=== PATIENT | male | born 1945 | race Caucasian/White ===

== ENCOUNTER 2017-11-11 03:36 | Inpatient (IN) | payer MEDICARE, MEDICAID ==
[2017-11-11] VITALS (11 sets, daily range): BP systolic 128–212; BP diastolic 59–101; PULSE 86–99; RESP 18–26; TEMP 97.6–98.6; O2SAT 96–100
[~2017-11-11] VITALS: Ht 170.2 cm; Wt 65.0 kg
--- NOTE | 2017-11-11 04:02 | PD ---
HPI Chief Complaint: Psychiatric Symptoms Time Seen by Provider: 03:51 Travel History International Travel<30 days: No Contact w/Intl Traveler<30days: No Traveled to known affect area: No History of Present Illness HPI 72-year-old male brought to emergency department under Haro act for psychiatric evaluation. Patient tells me that there were people at his door. He did not recognize them. He tells me that he lives far out in the [facility] so he contacted police. Police came and found him sitting in feces and urine with little food in the house. They felt the patient was hallucinating. They brought him in under Haro act. Patient states that he was doing well and denies any significant medical history except for polio as a child. 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 He denies any recent illnesses, fever, or chills. Reports that he has had difficulty with his bowels and bladder. Denies any abdominal pain. Denies any other symptoms at this time. [facility] Past Medical History Medical History: Denies Significant Hx Social History Alcohol Use: No Tobacco Use: No Substance Use: No Allergies-Medications (Allergen,Severity, Reaction): Coded Allergies: No Known Allergies (Unverified , 11/11/17) Review of Systems Except as stated in HPI: all other systems reviewed are Neg Physical Exam Narrative GENERAL: Unkempt male patient, sitting up in bed, in no acute distress. SKIN: Focused skin assessment warm/dry. Buttocks are excoriated after dried stool is removed. HEAD: Atraumatic. Normocephalic. EYES: Pupils equal and round. No scleral icterus. No injection or drainage. ENT: No nasal bleeding or discharge. Mucous membranes pink and moist. NECK: Trachea midline. No JVD. CARDIOVASCULAR: Regular rate and rhythm. No murmur appreciated. RESPIRATORY: No accessory muscle use. Diminished, coarse to auscultation. Breath sounds equal bilaterally. GASTROINTESTINAL: Abdomen soft, non-tender, nondistended. Hepatic and splenic margins not palpable. MUSCULOSKELETAL: No obvious deformities. No clubbing. No cyanosis. Trace distal lower extremity edema.. Patient is unable to move the extremities NEUROLOGICAL: Awake and alert. No obvious cranial nerve deficits. Motor grossly within normal limits. Normal speech. Data Data Last Documented VS Vital Signs Date Time Temp Pulse Resp B/P (MAP) Pulse Ox O2 Delivery O2 Flow Rate FiO2 11/11/17 03:54 98.6 88 20 189/86 (120) 100 Orders Orders Complete Blood Count With Diff (11/11/17 03:56) Basic Metabolic Panel (Bmp) (11/11/17 03:56) Urinalysis - C+S If Indicated (11/11/17 03:56) Drug Screen, Random Urine (11/11/17 03:56) Alcohol (Ethanol) (11/11/17 03:56) Chest, Single Ap (11/11/17 ) Ct Brain W/O Iv Contrast(Rout) (11/11/17 ) Electrocardiogram (11/11/17 ) Ns (Bolus) Inj (11/11/17 05:15) Labs Laboratory Tests Test 11/11/17 04:15 White Blood Count 8.8 TH/MM3 Red Blood Count 3.88 MIL/MM3 Hemoglobin 13.2 GM/DL Hematocrit 36.6 % Mean Corpuscular Volume 94.3 FL Mean Corpuscular Hemoglobin 33.9 PG Mean Corpuscular Hemoglobin Concent 35.9 % Red Cell Distribution Width 13.3 % Platelet Count 319 TH/MM3 Mean Platelet Volume 6.8 FL Neutrophils (%) (Auto) 79.2 % Lymphocytes (%) (Auto) 9.8 % Monocytes (%) (Auto) 9.9 % Eosinophils (%) (Auto) 0.5 % Basophils (%) (Auto) 0.6 % Neutrophils # (Auto) 7.0 TH/MM3 Lymphocytes # (Auto) 0.9 TH/MM3 Monocytes # (Auto) 0.9 TH/MM3 Eosinophils # (Auto) 0.0 TH/MM3 Basophils # (Auto) 0.1 TH/MM3 CBC Comment AUTO DIFF Urine Color LIGHT-YELLOW Urine Turbidity CLEAR Urine pH 6.5 Urine Specific [place] 1.006 Urine Protein NEG mg/dL Urine Glucose (UA) NEG mg/dL Urine Ketones 10 mg/dL Urine Occult Blood NEG Urine Nitrite NEG Urine Bilirubin NEG Urine Urobilinogen LESS THAN 2.0 MG/DL Urine Leukocyte Esterase NEG Urine RBC 1 /hpf Urine WBC 1 /hpf Urine Mucus FEW /lpf Microscopic Urinalysis Comment CULT NOT INDICATED Blood Urea Nitrogen 5 MG/DL Creatinine 0.59 MG/DL Random Glucose 113 MG/DL Calcium Level 8.2 MG/DL Sodium Level 119 MEQ/L Potassium Level 3.2 MEQ/L Chloride Level 84 MEQ/L Carbon Dioxide Level 25.7 MEQ/L Anion Gap 9 MEQ/L Estimat Glomerular Filtration Rate 134 ML/MIN Urine Opiates Screen NEG Urine Barbiturates Screen NEG Urine Amphetamines Screen NEG Urine Benzodiazepines Screen NEG Urine Cocaine Screen NEG Urine Cannabinoids Screen NEG Ethyl Alcohol Level LESS THAN 3 MG/DL MDM Medical Decision Making Medical Screen Exam Complete: Yes Emergency Medical Condition: Yes Medical Record Reviewed: Yes Differential Diagnosis Electrolytic abnormality versus sepsis versus gastroenteritis versus failure to thrive versus UTI Narrative Course 72-year-old male presents emergency department for evaluation. Patient appears without distress. He speaks clearly and seems to have fairly good recollection of events and what is going on. He does live alone however. Patient has no documented psychiatric history here. Patient did have dried feces on his buttocks and had voided on his pain is. Medical workup is initiated to evaluated. Laboratory Tests Test 11/11/17 04:15 White Blood Count 8.8 TH/MM3 Red Blood Count 3.88 MIL/MM3 Hemoglobin 13.2 GM/DL Hematocrit 36.6 % Mean Corpuscular Volume 94.3 FL Mean Corpuscular Hemoglobin 33.9 PG Mean Corpuscular Hemoglobin Concent 35.9 % Red Cell Distribution Width 13.3 % Platelet Count 319 TH/MM3 Mean Platelet Volume 6.8 FL Neutrophils (%) (Auto) 79.2 % Lymphocytes (%) (Auto) 9.8 % Monocytes (%) (Auto) 9.9 % Eosinophils (%) (Auto) 0.5 % Basophils (%) (Auto) 0.6 % Neutrophils # (Auto) 7.0 TH/MM3 Lymphocytes # (Auto) 0.9 TH/MM3 Monocytes # (Auto) 0.9 TH/MM3 Eosinophils # (Auto) 0.0 TH/MM3 Basophils # (Auto) 0.1 TH/MM3 CBC Comment AUTO DIFF Urine Color LIGHT-YELLOW Urine Turbidity CLEAR Urine pH 6.5 Urine Specific [place] 1.006 Urine Protein NEG mg/dL Urine Glucose (UA) NEG mg/dL Urine Ketones 10 mg/dL Urine Occult Blood NEG Urine Nitrite NEG Urine Bilirubin NEG Urine Urobilinogen LESS THAN 2.0 MG/DL Urine Leukocyte Esterase NEG Urine RBC 1 /hpf Urine WBC 1 /hpf Urine Mucus FEW /lpf Microscopic Urinalysis Comment CULT NOT INDICATED Blood Urea Nitrogen 5 MG/DL Creatinine 0.59 MG/DL Random Glucose 113 MG/DL Calcium Level 8.2 MG/DL Sodium Level 119 MEQ/L Potassium Level 3.2 MEQ/L Chloride Level 84 MEQ/L Carbon Dioxide Level 25.7 MEQ/L Anion Gap 9 MEQ/L Estimat Glomerular Filtration Rate 134 ML/MIN Urine Opiates Screen NEG Urine Barbiturates Screen NEG Urine Amphetamines Screen NEG Urine Benzodiazepines Screen NEG Urine Cocaine Screen NEG Urine Cannabinoids Screen NEG Ethyl Alcohol Level LESS THAN 3 MG/DL CBC is without acute concern. BMP is with hyponatremia 119. Mild hypokalemia 3.2. PLACE a [facility] for admission. Diagnosis Primary Impression: Altered mental status, unspecified Qualified Codes: R41.82 - Altered mental status, unspecified Additional Impressions: Hyponatremia Hypokalemia Admitting Information Admitting Physician Requests: Admit Condition: Stable ReyesLissett buclkey MISAEL Nov 11, 2017 04:02
[2017-11-11 04:36] LABS: BILIRUBIN, URINE NEG (NEG); BLOOD, URINE NEG (NEG); GLUCOSE,URINE NEG (NEG); KETONE, URINE 10 mg/dL (NEG); MUCUS URINE FEW /lpf (OCC); NITRITE,URINE NEG (NEG); PH, URINE 6.5 (5.0-8.5); URINE COLOR LIGHT-YELLOW (YELLW/STRAW); URINE LEUKOCYTE ESTERASE NEG (NEG)
[2017-11-11 04:38] LABS: BASOPHIL # 0.1 TH/MM3 (0-0.2); BASOPHIL % 0.6 % (0.0-2.0); EOSINOPHIL % 0.5 % (0.0-4.0); HEMATOCRIT 36.6 % (39.0-51.0); HEMOGLOBIN 13.2 GM/DL (13.0-17.0); LYMPH % 9.8 % (9.0-44.0); LYMPHOCYTE # 0.9 TH/MM3 (1.0-4.8); MEAN CELL VOLUME 94.3 FL (80.0-100.0); MEAN CORPUSCULAR HEMOGLOBIN 33.9 PG (27.0-34.0); MEAN CORPUSCULAR HGB CONC 35.9 % (32.0-36.0); MEAN PLATELET VOLUME 6.8 FL (7.0-11.0); MONO % 9.9 % (0.0-8.0); MONOCYTE # 0.9 TH/MM3 (0-0.9); NEUT % 79.2 % (16.0-70.0); PLATELET COUNT 319 TH/MM3 (150-450); RED BLOOD COUNT 3.88 MIL/MM3 (4.50-5.90); RED CELL DISTRIBUTION WIDTH 13.3 % (11.6-17.2); WHITE BLOOD COUNT 8.8 TH/MM3 (4.0-11.0)
--- NOTE | 2017-11-11 04:53 | RADRPT ---
EXAM DATE/TIME: 11/11/2017 04:27 [facility] COMPARISON: No previous studies available for comparison. INDICATIONS : Productive Cough x 1 month MEDICAL HISTORY : None. SURGICAL HISTORY : None. ENCOUNTER: Initial ACUITY: 1 month PAIN SCORE: 7/10 LOCATION: Bilateral chest FINDINGS: A single view of the chest demonstrates the lungs to be symmetrically aerated without evidence of mas s, infiltrate or effusion. There is hyperaeration of the lung garcia. The cardiomediastinal contours are unremarkable. Osseous structures are intact. CONCLUSION: No acute disease. Rafael Steel MD on November 11, 2017 at 4:50 Board Certified Radiologist. This report was verified electronically.
--- NOTE | 2017-11-11 04:55 | RADRPT ---
EXAM DATE/TIME: 11/11/2017 04:42 [facility] COMPARISON: No previous studies available for comparison. INDICATIONS : Altered mental status. RADIATION DOSE: 38.74 CTDIvol (mGy) MEDICAL HISTORY : None SURGICAL HISTORY : None. ENCOUNTER: Initial ACUITY: 1 day PAIN SCALE: Non-responsive LOCATION: cranial TECHNIQUE: Multiple contiguous axial images were obtained of the head. Using automated exposure control and adj ustment of the mA and/or kV according to patient size, radiation dose was kept as low as reasonably a chievable to obtain optimal diagnostic quality images. DICOM format image data is available electro nically for review and comparison. FINDINGS: CEREBRUM: The ventricles are normal for age. No evidence of midline shift, mass lesion, hemorrhage or acute in farction. No extra-axial fluid collections are seen. POSTERIOR FOSSA: The cerebellum and brainstem are intact. The 4th ventricle is midline. The cerebellopontine angle i s unremarkable. EXTRACRANIAL: The visualized portion of the orbits is intact. SKULL: The calvaria is intact. No evidence of skull fracture. CONCLUSION: Normal examination for a patient of this age. Rafael Steel MD on November 11, 2017 at 4:52 Board Certified Radiologist. This report was verified electronically.
[2017-11-11 05:00] LABS: BICARBONATE 25.7 MEQ/L (21.0-32.0); BLOOD UREA NITROGEN 5 MG/DL (7-18); CALCIUM 8.2 MG/DL (8.5-10.1); CHLORIDE 84 MEQ/L (98-107); CREATININE 0.59 MG/DL (0.60-1.30); GLOMERULAR FILTRATION RATE 134 ML/MIN (>89); GLUCOSE,RANDOM 113 MG/DL (74-106)
[2017-11-11 05:02] LABS: SODIUM (NA) 119 MEQ/L (136-145)
[2017-11-11] MEDS ORDERED: SODIUM CHLOR 0.9% 1000 ML INJ 1,000 ML IV ONE (05:15)
[2017-11-11 05:55] LABS: ACANTHOCYTES OCC (NORMAL)
--- NOTE | 2017-11-11 08:28 | HHI.HP ---
[facility] Service Critical Care Medicine Primary Care Physician No Primary Care Physician Admission Diagnosis hyponatremia Diagnosis: (1) Alcohol consumption of one to four drinks per day Diagnosis: Principal (2) Tobacco abuse Diagnosis: Principal (3) History of poliomyelitis Diagnosis: Secondary (4) Hyperglycemia Diagnosis: Secondary (5) Low hematocrit Diagnosis: Secondary (6) Hypokalemia Diagnosis: Principal (7) Hyponatremia Diagnosis: Principal (8) Altered mental status, unspecified Diagnosis: Secondary Chief Complaint: Haro act. Confused found covered in feces hallucinating. Lives in the [facility] Travel History International Travel<30 Days: No Contact w/Intl Traveler <30 Da: No Traveled to Known Affected Are: No History of Present Illness This is a 72-year-old male. Date of admission 11/11/2007. Past medical history includes postpolio syndrome. Patient extubated is doing soaks requires pack per day tobacco. Patient presents to [facility] ED as a Haro act. This patient stated to me that he saw " people" and contacted police. Police came and found him sitting in feces and urine with little food in the house. They felt the patient was hallucinating. They brought him in under Haro act. Patient states that he was doing well and denies any significant medical history except for polio as a child. 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 He denies any recent illnesses, fever, or chills. Reports that he has had difficulty with his bowels and bladder. Specifically complaining of suprapubic distention. Denies any abdominal pain. Denies any other symptoms at this time. CT brain revealed no acute intracranial findings. Sodium 119 potassium 3.2. Glucose slightly elevated. We are asked to admit the patient because the contacted hospitalist did not feel comfortable admitting a stable patient with a sodium of 119. Review of Systems Constitutional: COMPLAINS OF: Weight loss, DENIES: Fatigue, Fever, Weight gain Endocrine: DENIES: Polydipsia, Polyuria Eyes: DENIES: Blurred vision, Diplopia Ears, nose, mouth, throat: COMPLAINS OF: Hearing loss, DENIES: Toothache Respiratory: DENIES: Apneas, Shortness of breath Cardiovascular: DENIES: Chest pain, Lower Extremity Edema Gastrointestinal: DENIES: Diarrhea, Nausea, Vomiting Genitourinary: COMPLAINS OF: Urgency, DENIES: Hematuria, Dysuria Musculoskeletal: DENIES: Joint pain, Muscle aches, Joint Swelling Integumentary: DENIES: Abnormal pigmentation, Rash Hematologic/lymphatic: DENIES: Bruising Immunologic/allergic: DENIES: Eczema Neurologic: COMPLAINS OF: Abnormal gait, Localized weakness, DENIES: Paresthesias, Seizures, Speech Problems Psychiatric: COMPLAINS OF: Anxiety, Confusion, Depression, Hallucinations, Agitation Past Family Social History Allergies: Coded Allergies: No Known Allergies (Unverified , 11/11/17) Past Medical History Postpolio syndrome Hard of hearing Past Surgical History Dental/all upper teeth removed, partial lowers. Vocal cord polyp removal Reported Medications None Active Ordered Medications Reviewed in EMR Family History Mother from cancer. Father from self-inflicted gunshot wound Social History 2 beers daily. Three quarters pack per day tobacco 50 years. Denies illicit drug use. Physical Exam Vital Signs Vital Signs Date Time Temp Pulse Resp B/P (MAP) Pulse Ox O2 Delivery O2 Flow Rate FiO2 11/11/17 05:29 87 20 212/101 (138) 96 Room Air 11/11/17 05:23 91 20 11/11/17 03:54 98.6 88 20 189/86 (120) 100 Physical Exam GENERAL: 72-year-old male resting in bed in no acute distress SKIN: Warm and dry. HEAD: Atraumatic. Normocephalic. EYES: Pupils equal and round. No scleral icterus. No injection or drainage. ENT: No nasal bleeding or discharge. Mucous membranes pink and moist. NECK: Trachea midline. No JVD. CARDIOVASCULAR: Regular rate and rhythm. S1, S2. No S4. Without murmur RESPIRATORY: No accessory muscle use. Clear to auscultation. Breath sounds equal bilaterally. GASTROINTESTINAL: Abdomen soft, non-tender, slightly distended suprapubically. No pain elicited on examination. Hepatic and splenic margins not palpable. MUSCULOSKELETAL: Extremities without significant peripheral edema. No obvious deformities. NEUROLOGICAL: Awake and alert. No obvious cranial nerve deficits. Motor grossly within normal limits. Five out of 5 muscle strength in the arms and legs. Normal speech. Laboratory Laboratory Tests Test 11/11/17 04:15 White Blood Count 8.8 Red Blood Count 3.88 Hemoglobin 13.2 Hematocrit 36.6 Mean Corpuscular Volume 94.3 Mean Corpuscular Hemoglobin 33.9 Mean Corpuscular Hemoglobin Concent 35.9 Red Cell Distribution Width 13.3 Platelet Count 319 Mean Platelet Volume 6.8 Neutrophils (%) (Auto) 79.2 Lymphocytes (%) (Auto) 9.8 Monocytes (%) (Auto) 9.9 Eosinophils (%) (Auto) 0.5 Basophils (%) (Auto) 0.6 Neutrophils # (Auto) 7.0 Lymphocytes # (Auto) 0.9 Monocytes # (Auto) 0.9 Eosinophils # (Auto) 0.0 Basophils # (Auto) 0.1 CBC Comment AUTO DIFF Differential Comment AUTO DIFF CONFIRMED Platelet Estimate NORMAL Platelet Morphology Comment NORMAL Acanthocytes OCC Urine Color LIGHT-YELLOW Urine Turbidity CLEAR Urine pH 6.5 Urine Specific [place] 1.006 Urine Protein NEG Urine Glucose (UA) NEG Urine Ketones 10 Urine Occult Blood NEG Urine Nitrite NEG Urine Bilirubin NEG Urine Urobilinogen LESS THAN 2.0 Urine Leukocyte Esterase NEG Urine RBC 1 Urine WBC 1 Urine Mucus FEW Microscopic Urinalysis Comment CULT NOT INDICATED Blood Urea Nitrogen 5 Creatinine 0.59 Random Glucose 113 Calcium Level 8.2 Sodium Level 119 Potassium Level 3.2 Chloride Level 84 Carbon Dioxide Level 25.7 Anion Gap 9 Estimat Glomerular Filtration Rate 134 Urine Opiates Screen NEG Urine Barbiturates Screen NEG Urine Amphetamines Screen NEG Urine Benzodiazepines Screen NEG Urine Cocaine Screen NEG Urine Cannabinoids Screen NEG Ethyl Alcohol Level LESS THAN 3 Result Diagram: 11/11/17 0415 11/11/17 0415 Imaging Last Impressions Head CT 11/11/17 0000 Signed Impressions: Service Date/Time: Saturday, November 11, 2017 04:42 - CONCLUSION: Normal examination for a patient of this age. Rafael Steel MD Chest X-Ray 11/11/17 0000 Signed Impressions: Service Date/Time: Saturday, November 11, 2017 04:27 - CONCLUSION: No acute disease. Rafael Steel MD Septic Shock Reassessment Septic shock perfusion: reassessment completed Caprini VTE Risk Assessment Caprini VTE Risk Assessment: Mod/High Risk (score >= 2) Caprini Risk Assessment Model Point Value = 1 Point Value = 2 Point Value = 3 Point Value = 5 Age 41-60 Minor surgery BMI > 25 kg/m2 Swollen legs Varicose veins or History of unexplained or recurrent spontaneous Oral contraceptives or hormone replacement Sepsis (< 1 month) Serious lung disease, including pneumonia (< 1 month) Abnormal pulmonary function Acute myocardial infarction Congestive heart failure (< 1 month) History of inflammatory bowel disease Medical patient at bed rest Age 61-74 Arthroscopic surgery Major open surgery (> 45 min) Laparoscopic surgery (> 45 min) Malignancy Confined to bed (> 72 hours) Immobilizing plaster cast Central venous access Age >= 75 History of VTE Family history of VTE Factor V Leiden Prothrombin [id number] Lupus anticoagulant Anticardiolipin antibodies Elevated serum homocysteine Heparin-induced thrombocytopenia Other congenital or acquired thrombophilia Stroke (< 1 month) Elective arthroplasty Hip, pelvis, or leg fracture Acute spinal cord injury (< 1 month) Prophylaxis Regimen Total Risk Factor Score Risk Level Prophylaxis Regimen 0-1 Low Early ambulation 2 Moderate Order ONE of the following: *Sequential Compression Device (SCD) *Heparin 5000 units SQ BID 3-4 Higher Order ONE of the following medications: *Heparin 5000 units SQ TID *Enoxaparin/Lovenox 40 mg SQ daily (WT < 150 kg, CrCl > 30 mL/min) *Enoxaparin/Lovenox 30 mg SQ daily (WT < 150 kg, CrCl > 10-29 mL/min) *Enoxaparin/Lovenox 30 mg SQ BID (WT < 150 kg, CrCl > 30 mL/min) AND/OR *Sequential Compression Device (SCD) 5 or more Highest Order ONE of the following medications: *Heparin 5000 units SQ TID (Preferred with Epidurals) *Enoxaparin/Lovenox 40 mg SQ daily (WT < 150 kg, CrCl > 30 mL/min) *Enoxaparin/Lovenox 30 mg SQ daily (WT < 150 kg, CrCl > 10-29 mL/min) *Enoxaparin/Lovenox 30 mg SQ BID (WT < 150 kg, CrCl > 30 mL/min) AND *Sequential Compression Device (SCD) Assessment and Plan Assessment and Plan Neuro/Psych: Visual hallucinations Metabolic encephalopathy CT brain 11/11 revealed no acute intracranial findings Check EEG Likely will be resolved with slow correction sodium. Patient is under a Haro act. Consult psychiatry when able to participate in discussion UDS (-) Check EtOH level Acetaminophen 650 mg every 6 hours. Fever Hydrocodone/acetaminophen 1 tablet every 4 hours when necessary pain 1-5. Morphine sulfate 2 mg IV every 2 hours when necessary pain 6 out of 10 CV: Currently normal saline at 40 cc an hour Currently not requiring vasopressors and/or antihypertensives Check EKG Resp: Tobaccoism Nasal cannula to maintain saturations greater than or equal to 92% Incentive spirometry while awake Tobacco sensation self education booklet will be provided. GI: Follow-up on liver function tests and ammonia level Regular diet Pantoprazole for GI prophylaxis Docusate sodium/senna 1 tablet twice a day for bowel regimen : No indication for Ramirez catheter Check renal/bladder ultrasound Endo: Hyperglycemia Sliding-scale insulin to maintain euglycemia Novulin R Accu-Cheks before meals at bedtime Check TSH Renal: Creatinine currently within normal limits Monitor urine output Accurate I's and O's Heme: Decreased hematocrit Follow CBC and coags as indicated. Monitor trends ID: Monitor for infection FEN: Hyponatremia Hypokalemia Ordered 90 mEq potassium chloride over the next 24 hours. Appears euvolemic. Check serum and urine osm, urine sodium, TSH, cortisol cardiac acid and lipid panel. Volume restrict 1800 cc Normal saline at 40 cc an hour. Goal sodium no more than 12 in the next 24 hours\\ MSK: History of postpolio syndrome PT evaluate and treat Access - Utilize peripheral IV. Central line if indicated Prophylaxis - GI - pantoprazole - DVT - SCD/heparin Level II admission. Patient is stable from a critical care medicine standpoint. We'll assign care to hospitalist in a.m. 11/12. Code Status Full code Discussed Condition With Patient. Care plan discussed and all questions answered. Problem Qualifiers (1) Altered mental status, unspecified: Qualified Codes: R41.82 - Altered mental status, unspecified Antoine Black MD Nov 11, 2017 08:28
[2017-11-11] MEDS ORDERED: ONDANSETRON HCL 4 MG/2 ML VIAL IV PUSH PRN (08:30)
[2017-11-11] MEDS ORDERED: SENNOSIDES 8.6 MG TAB PO PRN (08:30)
[2017-11-11] MEDS ORDERED: ACETAMINOPHEN/HYDROcodone 325 MG/5 MG TAB PO PRN (08:30)
[2017-11-11] MEDS ORDERED: MORPHINE SULFATE 2 MG/ML INJ IV PUSH PRN (08:30)
[2017-11-11] MEDS ORDERED: ACETAMINOPHEN 325 MG TAB PO PRN (08:30)
[2017-11-11] MEDS ORDERED: MAGNESIUM HYDROXIDE SUSP 30 ML CUP PO PRN (08:30)
[2017-11-11] MEDS ORDERED: BISACODYL 10 MG SUPP RECTAL PRN (08:30)
[2017-11-11] MEDS ORDERED: LACTULOSE SYRUP 20 GM/30 ML CUP PO PRN (08:30)
[2017-11-11] MEDS ORDERED: MISCELLANEOUS NURSING INFORMATION XX SCH (08:30)
[2017-11-11] MEDS ORDERED: RESP: ALBUTEROL 2.5 MG/3 ML NEB (PRN) INH (08:30)
[2017-11-11] MEDS ORDERED: SODIUM CHLORIDE 0.9% FLUSH 10 ML FLUSH IV FLUSH PRN (08:30)
[2017-11-11] MEDS ORDERED: CHLORHEXIDINE GLUCONATE 2 % 1 PACK (2 CLOTHS) TOP PRN (08:30)
[2017-11-11] MEDS ORDERED: DEXTROSE 50% IN WATER 50 ML VIAL(D50) IV PUSH PRN (08:45)
[2017-11-11] MEDS: RESP: ALBUTEROL 2.5 MG/IPRATROPIUM 0.5 MG NEB (SCH) INH ×3 (08:45→19:14)
[2017-11-11] MEDS ORDERED: GLUCAGON 1 MG/ML VIAL OTHER PRN (08:45)
[2017-11-11] MEDS ORDERED: SODIUM CHLOR 0.9% 1000 ML INJ 1,000 ML IV SCH (09:00)
[2017-11-11 09:47] LABS: SODIUM,RANDOM URINE 15 MEQ/L
[2017-11-11] MEDS: HEPARIN SODIUM - SQ 10,000 UNITS/ML VIAL SQ SCH (09:55)
[2017-11-11] MEDS: PANTOPRAZOLE SOD 40 MG DELAYED RELEASE TAB PO SCH (09:55)
[2017-11-11] MEDS: POTASSIUM CHLORIDE 10 MEQ CONTROLLED RELEASE TAB PO SCH ×2 (09:55→20:36)
[2017-11-11] MEDS: FOLIC ACID 1 MG TAB PO SCH (09:56)
[2017-11-11] MEDS: SODIUM CHLORIDE 0.9% FLUSH 10 ML FLUSH IV FLUSH SCH ×2 (09:56→20:24)
[2017-11-11] MEDS: MULTIVITAMIN TAB PO SCH (09:56)
[2017-11-11] MEDS: DOCUSATE SODIUM 50 MG/SENNA 8.6 MG TAB PO SCH ×2 (09:56→20:24)
[2017-11-11] MEDS: THIAMINE HCL 100 MG TAB PO SCH (09:58)
[2017-11-11 10:00] LABS: OSMOLALITY,URINE 193 MOSM/KG (300-1300)
[2017-11-11 10:45] LABS: PROTHROMBIN TIME - PATIENT 10.6 SEC (9.8-11.6)
[2017-11-11 10:46] LABS: AMYLASE 40 U/L (25-115); LIPASE 147 U/L (73-393)
--- NOTE | 2017-11-11 10:49 | RADRPT ---
EXAM DATE/TIME: 11/11/2017 10:13 [facility] COMPARISON: No previous studies available for comparison. INDICATIONS : Flank pain. MEDICAL HISTORY : Hearing loss. Eye problem. Confusion. Depression. Anxiety. SURGICAL HISTORY : Tonsillectomy. ENCOUNTER: Initial ACUITY: 1 day PAIN SCORE: 4/10 LOCATION: Bilateral flank MEASUREMENTS: RIGHT KIDNEY: 11.1 x 3.8 x 4.6 cm LEFT KIDNEY: 9.5 x 2.9 x 5.9 cm FINDINGS: RIGHT KIDNEY: Small amount of perinephric fluid. 1.1 cm simple peripelvic cyst. No evidence of hydronephrosis. LEFT KIDNEY: Grossly within normal limits. No evidence of hydronephrosis. BLADDER: Mildly trabeculated appearance the bladder. Mildly distended. CONCLUSION: Mildly distended urinary bladder with trabeculated wall. No evidence of hydronephrosis. Minh Zarate MD on November 11, 2017 at 10:45 Board Certified Radiologist. This report was verified electronically.
[2017-11-11 11:34] LABS: ALBUMIN 3.4 GM/DL (3.4-5.0); DIRECT BILIRUBIN ADULT 0.2 MG/DL (0.0-0.2); MAGNESIUM 1.9 MG/DL (1.5-2.5); PHOSPHORUS 3.2 MG/DL (2.5-4.9)
[2017-11-11 11:44] LABS: CHOLESTEROL/ HDL RATIO 2.07 RATIO; HDL CHOLESTEROL 84.5 MG/DL (40.0-60.0); INDIRECT BILIRUBIN 0.6 MG/DL (0.0-0.8); TOTAL BILIRUBIN ADULT 0.8 MG/DL (0.2-1.0); TOTAL PROTEIN 6.3 GM/DL (6.4-8.2)
[2017-11-11] MEDS: INSULIN NovoLIN REGULAR SUPPLEMENTAL SCALE SQ SCH ×3 (12:00→20:36)
[2017-11-11] MEDS ORDERED: hydrALAZINE HCL 20 MG/ML VIAL IV PUSH PRN (12:15)
[2017-11-11] MEDS ORDERED: hydrALAZINE HCL 20 MG/ML VIAL IV PUSH ONE (12:15)
[2017-11-11] MEDS ORDERED: NITROGLYCERIN 2% OINT 1 GM PACKET TOPICAL PRN (12:15)
[2017-11-11] MEDS ORDERED: LABETALOL HCL 100 MG/20 ML VIAL IV PUSH PRN (12:15)
[2017-11-11] MEDS: ARTIFICIAL TEARS OPTH SOLN 15 ML BTL EACH EYE SCH ×3 (13:00→18:25)
[2017-11-11] MEDS ORDERED: POTASSIUM CHLORIDE INJ 10 MEQ in SODIUM CHLOR 0.45% 1000 ML INJ 1,000 ML IV SCH (15:00)
--- NOTE | 2017-11-11 15:29 | EKG ---
Date Performed: 11/11/2017 Time Performed: 04:37:42 PTAGE: 72 years EKG: Sinus rhythm LOW QRS VOLTAGE IN EXTREMITY LEADS POSSIBLE RIGHT VENTRICULAR CONDUCTION DELAY INFERIOR MYOCARDIAL I NFARCTION ABNORMAL ECG NO PREVIOUS TRACING DOCTOR: Bethel Bolaños Interpretating Date/Time 11/11/2017 15:28:16
[2017-11-12] VITALS (13 sets, daily range): BP systolic 138–197; BP diastolic 68–97; PULSE 74–104; RESP 18–24; TEMP 97.9–98.7; O2SAT 92–98
[2017-11-12 01:04] LABS: AUTOMATED NEUTROPHIL # 8.6 TH/MM3 (1.8-7.7); BASOPHIL % 0.5 % (0.0-2.0); HEMATOCRIT 34.7 % (39.0-51.0); HEMOGLOBIN 12.3 GM/DL (13.0-17.0); LYMPH % 7.6 % (9.0-44.0); LYMPHOCYTE # 0.8 TH/MM3 (1.0-4.8); MEAN CELL VOLUME 95.2 FL (80.0-100.0); MEAN CORPUSCULAR HEMOGLOBIN 33.9 PG (27.0-34.0); MEAN CORPUSCULAR HGB CONC 35.6 % (32.0-36.0); MEAN PLATELET VOLUME 6.6 FL (7.0-11.0); MONO % 9.4 % (0.0-8.0); NEUT % 82.5 % (16.0-70.0); PLATELET COUNT 335 TH/MM3 (150-450); RED BLOOD COUNT 3.65 MIL/MM3 (4.50-5.90); RED CELL DISTRIBUTION WIDTH 13.4 % (11.6-17.2); WHITE BLOOD COUNT 10.4 TH/MM3 (4.0-11.0)
[2017-11-12 01:20] LABS: INTERNATIONAL NORMALIZED RATIO 1.1 RATIO; PROTHROMBIN TIME - PATIENT 10.7 SEC (9.8-11.6)
[2017-11-12 01:26] LABS: ALBUMIN 2.9 GM/DL (3.4-5.0); ALKALINE PHOSPHATASE 88 U/L (45-117); ALT (GPT) 40 U/L (12-78); AST (GOT) 23 U/L (15-37); BICARBONATE 26.7 MEQ/L (21.0-32.0); BLOOD UREA NITROGEN 7 MG/DL (7-18); CALCIUM 8.3 MG/DL (8.5-10.1); CHLORIDE 93 MEQ/L (98-107); CREATININE 0.65 MG/DL (0.60-1.30); GLOMERULAR FILTRATION RATE 120 ML/MIN (>89); GLUCOSE,RANDOM 115 MG/DL (74-106); MAGNESIUM 1.9 MG/DL (1.5-2.5); PHOSPHORUS 2.8 MG/DL (2.5-4.9); SODIUM (NA) 128 MEQ/L (136-145); TOTAL BILIRUBIN ADULT 0.8 MG/DL (0.2-1.0); TOTAL PROTEIN 5.9 GM/DL (6.4-8.2)
[2017-11-12] MEDS: CHLORHEXIDINE GLUCONATE 2 % 1 PACK (2 CLOTHS) TOP SCH (02:33)
[2017-11-12] MEDS: RESP: ALBUTEROL 2.5 MG/IPRATROPIUM 0.5 MG NEB (SCH) INH ×4 (03:18→20:14)
[2017-11-12] MEDS: INSULIN NovoLIN REGULAR SUPPLEMENTAL SCALE SQ SCH ×4 (08:00→21:00)
--- NOTE | 2017-11-12 08:15 | MG ---
cc: JOAQUIN MONDRAGON MD Lab No: Date: 11/11/2017 Age: Sex: M Race: DATE OF [address] Black MEDICAL HISTORY Hearing loss, confusion, weakness, depression, anxiety, weight loss, hallucination, alcohol and tobacco abuse. The patient is Haro Acted, found in feces and urine, hallucinating, difficulty walking for 2 months. MEDICATIONS 1. Heparin. 2. Protonix. 3. KCL. 4. Thiamine. 5. Folic acid. 6. Theragran. DESCRIPTION Background activity is 8-9 Hz alpha located posteriorly. There is excessive eye blink and muscle artifact during the recording. There is electrode artifact on the right hemisphere frontal and temporal area. Hyperventilation was omitted. Photic stimulation did not elicit driving response. The patient transitioned to sleep during the recording. There were no electrographic seizures or epileptiform discharges noted during the recording. INTERPRETATION This is normal awake, drowsy and asleep EEG. There was excessive eye blink and movement artifact as well as electrode artifact. There were no electrographic seizures or epileptiform discharges noted during the recording. Clinical correlation is recommended. MD SPARKLE Poole/TLL /11:55 PM /7:54 AM MTDApril
[2017-11-12] MEDS: DOCUSATE SODIUM 50 MG/SENNA 8.6 MG TAB PO SCH ×2 (09:00→21:00)
[2017-11-12] MEDS: ARTIFICIAL TEARS OPTH SOLN 15 ML BTL EACH EYE SCH ×3 (09:09→17:17)
[2017-11-12] MEDS: FOLIC ACID 1 MG TAB PO SCH (09:09)
[2017-11-12] MEDS: SODIUM CHLORIDE 0.9% FLUSH 10 ML FLUSH IV FLUSH SCH ×2 (09:09→21:38)
[2017-11-12] MEDS: PANTOPRAZOLE SOD 40 MG DELAYED RELEASE TAB PO SCH (09:10)
[2017-11-12] MEDS: POTASSIUM CHLORIDE 10 MEQ CONTROLLED RELEASE TAB PO SCH (09:10)
[2017-11-12] MEDS: THIAMINE HCL 100 MG TAB PO SCH (09:10)
[2017-11-12] MEDS: MULTIVITAMIN TAB PO SCH (09:10)
[2017-11-12] MEDS ORDERED: cloNIDine HCL 0.1 MG TAB PO ONE (09:30)
[2017-11-12] MEDS: HEPARIN SODIUM - SQ 10,000 UNITS/ML VIAL SQ SCH ×3 (10:06→21:33)
[2017-11-12 11:30] LABS: HEMOGLOBIN A1C 5.6 % (4.3-6.0)
--- NOTE | 2017-11-12 13:59 | HHI.PR ---
Objective Vitals Vital Signs Date Time Temp Pulse Resp B/P (MAP) Pulse Ox O2 Delivery O2 Flow Rate FiO2 11/12/17 13:20 98.7 102 24 171/78 (109) 95 11/12/17 11:02 98 21 11/12/17 09:21 104 176/88 (117) 11/12/17 07:40 98.2 97 18 197/97 (130) 96 11/12/17 05:12 97.9 103 18 144/79 (100) 92 11/12/17 00:00 98.1 74 18 138/69 (92) 97 11/11/17 21:00 11/11/17 20:31 99 18 128/59 (82) 96 Room Air 11/11/17 19:16 96 21 11/11/17 18:27 98 18 144/76 (98) 97 Room Air I/O 11/11/17 11/11/17 11/11/17 11/12/17 11/12/17 11/12/17 07:00 15:00 23:00 07:00 15:00 23:00 Intake Total 180 ml 560 ml Output Total 1350 ml Balance -1170 ml 560 ml Intake Oral 180 ml 240 ml IV Total 320 ml Output Urine Total 1350 ml # Voids 3 1 # Bowel Movements 1 Result Diagram: 11/12/17 0037 11/12/17 0037 Imaging Last Impressions Renal Ultrasound 11/11/17 0000 Signed Impressions: Service Date/Time: Saturday, November 11, 2017 10:13 - CONCLUSION: Mildly distended urinary bladder with trabeculated wall. No evidence of hydronephrosis. Minh Zarate MD Head CT 11/11/17 0000 Signed Impressions: Service Date/Time: Saturday, November 11, 2017 04:42 - CONCLUSION: Normal examination for a patient of this age. Rafael Steel MD Chest X-Ray 11/11/17 0000 Signed Impressions: Service Date/Time: Saturday, November 11, 2017 04:27 - CONCLUSION: No acute disease. Rafael Steel MD Objective Remarks GENERAL: 72-year-old male resting in bed in no acute distress SKIN: Warm and dry. CARDIOVASCULAR: Regular rate and rhythm. S1, S2. No S4. Without murmur RESPIRATORY: No accessory muscle use. Clear to auscultation. Breath sounds equal bilaterally. GASTROINTESTINAL: Abdomen soft, non-tender, slightly distended suprapubically. No pain elicited on examination. Hepatic and splenic margins not palpable. MUSCULOSKELETAL: Extremities without significant peripheral edema. No obvious deformities. NEUROLOGICAL: Awake and alert. No obvious cranial nerve deficits. Motor grossly within normal limits. Five out of 5 muscle strength in the arms and legs. Normal speech. A/P Problem List: (1) Alcohol consumption of one to four drinks per day ICD Code: Z78.9 - Other specified health status (2) Tobacco abuse ICD Code: Z72.0 - Tobacco use (3) History of poliomyelitis ICD Code: Z86.12 - Personal history of poliomyelitis (4) Hyperglycemia ICD Code: R73.9 - Hyperglycemia, unspecified (5) Low hematocrit ICD Code: R71.0 - Precipitous drop in hematocrit (6) Hypokalemia ICD Code: E87.6 - Hypokalemia Status: Acute (7) Hyponatremia ICD Code: E87.1 - Hypo-osmolality and hyponatremia Status: Acute (8) Altered mental status, unspecified ICD Code: R41.82 - Altered mental status, unspecified Status: Acute Assessment and Plan Neuro/Psych: Visual hallucinations Metabolic encephalopathy 2/2 hyponatremia Na of [address] brain 11/11 revealed no acute intracranial findings EEG no seizures Likely will be resolved with slow correction sodium. Na improving. Monitor closely for fast correction Patient is under a Haro act. Consult psychiatry seen by Dr Tree macias BA until medically cleared. Will reassess pt. UDS (-) EtOH level normal on admission Acetaminophen 650 mg every 6 hours. Fever Hydrocodone/acetaminophen 1 tablet every 4 hours when necessary pain 1-5. Morphine sulfate 2 mg IV every 2 hours when necessary pain 6 out of 10 CV: Currently normal saline at 40 cc an hour Currently not requiring vasopressors and/or antihypertensives Check EKG Resp: Tobaccoism Nasal cannula to maintain saturations greater than or equal to 92% Incentive spirometry while awake Tobacco sensation self education booklet will be provided. GI: Follow-up on liver function tests and ammonia level Regular diet Pantoprazole for GI prophylaxis Docusate sodium/senna 1 tablet twice a day for bowel regimen : No indication for Ramirez catheter Check renal/bladder ultrasound Endo: Hyperglycemia Sliding-scale insulin to maintain euglycemia Novulin R Accu-Cheks before meals at bedtime Check TSH nl Renal: Creatinine currently within normal limits Monitor urine output Accurate I's and O's Heme: Decreased hematocrit Follow CBC and coags as indicated. Monitor trends ID: Monitor for infection FEN: Hyponatremia Hypokalemia Ordered 90 mEq potassium chloride over the next 24 hours. Appears euvolemic. Check serum and urine osm, urine sodium, TSH, cortisol cardiac acid and lipid panel. Volume restrict 1800 cc Normal saline at 40 cc an hour. Goal sodium no more than 12 in the next 24 hours\ MSK: History of postpolio syndrome PT evaluate and treat Access - Utilize peripheral IV. Central line if indicated Prophylaxis - GI - pantoprazole - DVT - SCD/heparin Code Status Full code Discussed Condition With Patient, nurse Problem Qualifiers (1) Altered mental status, unspecified: Qualified Codes: R41.82 - Altered mental status, unspecified Delmi Boston MD Nov 12, 2017 13:59
--- NOTE | 2017-11-12 18:17 | PD.PSY.CON ---
Provisional Diagnosis Admission Date Nov 11, 2017 at 08:21 [place]. Delirium, rule out underlying dementia History of Present Illness Service Psychiatry Consult Requested By Dr. Black Reason for Consult Haro Act, hyponatremia and hallucinations Primary Care Physician No Primary Care Physician HPI Patient is a 72 y/o man domiciled alone, has 3 adult children who live out of state, no formal past psychiatric history, alcohol use disorder, past medical history of hypertension, who was brought in after patient called police stating he was seeing " people" and found him sitting in feces and urine with little food in the house brought patient under Haro act, currently hyponatremic which psychiatry was consulted for evaluation. Nursing staff reported that the patient noted to be confused, attempted to get out of bed and had one fall. Patient was found lying on hospital bed, noted to be calm and cooperative, alert and oriented to person only. Patient belieives he is 82 y/o but was able to provide his correct birthdate. He is unable to recall the events prior to his hospitalization. Patient with flight of ideas and tangential but able to answer concrete questions. He denies any active auditory or visual hallucinations at this time nor are there any delusional material. He denies feeling depressed nor having any suicidal or homicidal ideations. Past psychiatric history: denies any previous psychiatric diagnosis, hospitalizations nor any prior suicide attempts or self injurious behavior. Substance use history: previous tobacco use (quit), ETOh use 1-2 beers per day, last drink yesterday. Denies use of any other substance. Past medical history: HTN, mentions he has a history of cancer but was not able to elaborate or specify Allergies: NKDA Social history: has three adult children (in [employer]) domiciled alone. Past Family Social History Coded Allergies: No Known Allergies (Unverified , 11/11/17) Current Medications Medications (Trade) Dose Ordered Sig/Steve Route Start Time Stop Time Status Last Admin (NS Flush) 2 ml UNSCH PRN IV FLUSH 11/11/17 08:30 (NS Flush) 2 ml BID IV FLUSH 11/11/17 09:00 11/12/17 09:09 (Tylenol) 650 mg Q6H PRN PO 11/11/17 08:30 ([place] 5-325 Mg) 1 tab Q4H PRN PO 11/11/17 08:30 (Morphine Inj) 2 mg Q2H PRN IV PUSH 11/11/17 08:30 (Protonix) 40 mg DAILY PO 11/11/17 09:00 11/12/17 09:10 (Tears Naturale Opth Soln) 1 drop TID EACH EYE 11/11/17 09:00 11/12/17 17:17 (Zofran Inj) 4 mg Q6H PRN IV PUSH 11/11/17 08:30 (Duoneb Neb) 1 ampule Q6HR NEB INH 11/11/17 10:00 11/12/17 15:50 (Albuterol Neb) 2.5 mg Q2HR NEB PRN INH 11/11/17 08:30 (Heparin Inj) 5,000 units Q12H SQ 11/11/17 10:00 11/12/17 10:06 Miscellaneous Information 1 Q361D XX 11/11/17 08:30 (Chlorhexidine 2% Cloth) 3 pack Taper DAILY@04 TOP 11/12/17 04:00 11/08/18 03:59 (Chlorhexidine 2% Cloth) 3 pack UNSCH PRN TOP 11/11/17 08:30 (Hina-Colace) 1 tab BID PO 11/11/17 09:00 11/11/17 09:56 (Milk Of Magnesia Liq) 30 ml Q12H PRN PO 11/11/17 08:30 (Senokot) 17.2 mg Q12H PRN PO 11/11/17 08:30 (Dulcolax Supp) 10 mg DAILY PRN RECTAL 11/11/17 08:30 (Lactulose Liq) 30 ml DAILY PRN PO 11/11/17 08:30 (Vitamin B1) 100 mg DAILY PO 11/11/17 09:00 11/12/17 09:10 (Folate) 1 mg DAILY PO 11/11/17 09:00 11/12/17 09:09 (Theragran) 1 tab DAILY PO 11/11/17 09:00 11/12/17 09:10 (D50w (Vial) Inj) 50 ml UNSCH PRN IV PUSH 11/11/17 08:45 (Glucagon Inj) 1 mg UNSCH PRN OTHER 11/11/17 08:45 (NovoLIN R SUPPLEMENTAL SCALE) 1 ACHS SLIDING SCALE SQ 11/11/17 12:00 (Catapres) 0.1 mg Q6H PRN PO 11/12/17 09:30 Physical Exam Vital Signs Vital Signs Date Time Temp Pulse Resp B/P (MAP) Pulse Ox O2 Delivery O2 Flow Rate FiO2 11/12/17 17:28 98.2 102 20 185/97 (126) 96 11/12/17 11:02 21 11/11/17 20:31 Room Air Lab Results Test 11/12/17 00:37 11/12/17 03:35 White Blood Count 10.4 TH/MM3 Red Blood Count 3.65 MIL/MM3 Hemoglobin 12.3 GM/DL Hematocrit 34.7 % Mean Corpuscular Volume 95.2 FL Mean Corpuscular Hemoglobin 33.9 PG Mean Corpuscular Hemoglobin Concent 35.6 % Red Cell Distribution Width 13.4 % Platelet Count 335 TH/MM3 Mean Platelet Volume 6.6 FL Neutrophils (%) (Auto) 82.5 % Lymphocytes (%) (Auto) 7.6 % Monocytes (%) (Auto) 9.4 % Eosinophils (%) (Auto) 0.0 % Basophils (%) (Auto) 0.5 % Neutrophils # (Auto) 8.6 TH/MM3 Lymphocytes # (Auto) 0.8 TH/MM3 Monocytes # (Auto) 1.0 TH/MM3 Eosinophils # (Auto) 0.0 TH/MM3 Basophils # (Auto) 0.0 TH/MM3 CBC Comment DIFF FINAL Differential Comment Prothrombin Time 10.7 SEC Prothromb Time International Ratio 1.1 RATIO Activated Partial Thromboplast Time 23.1 SEC Blood Urea Nitrogen 7 MG/DL Creatinine 0.65 MG/DL Random Glucose 115 MG/DL Total Protein 5.9 GM/DL Albumin 2.9 GM/DL Calcium Level 8.3 MG/DL Phosphorus Level 2.8 MG/DL Magnesium Level 1.9 MG/DL Alkaline Phosphatase 88 U/L Aspartate Amino Transf (AST/SGOT) 23 U/L Alanine Aminotransferase (ALT/SGPT) 40 U/L Total Bilirubin 0.8 MG/DL Sodium Level 128 MEQ/L Potassium Level 3.1 MEQ/L Chloride Level 93 MEQ/L Carbon Dioxide Level 26.7 MEQ/L Anion Gap 8 MEQ/L Estimat Glomerular Filtration Rate 120 ML/MIN Hemoglobin A1c 5.6 % Lactic Acid Level 1.1 mmol/L Mental Status Examination Appearance: Disheveled Consciousness: Alert Orientation: Person Speech: Unremarkable Language: Adequate Fund of Knowledge: Inadequate Attention and Concentration: Adequate Memory: Impaired Mood: Appropriate Affect: Appropriate Thought Process & Associations: Disorganized (at times) Thought Content: Other Hallucination Type: None Delusion Type: None Suicidal Ideation: No Suicidal Plan: No Suicidal Intention: No Homicidal Ideation: No Homicidal Plan: No Homicidal Intention: No Insight: Poor Judgment: Poor Assessment & Plan Problem List: (1) Delirium due to another medical condition ICD Codes: F05 - Delirium due to known physiological condition Assessment & Plan Patient is a 72-year-old man domiciled alone, has 3 adult children who live out of state, no formal past psychiatric history, alcohol use disorder , past medical history of hypertension, who was brought in after patient called police stating he was seeing " people" and found him sitting in feces and urine with little food in the house brought patient under Haro act, currently hyponatremic which psychiatry was consulted for evaluation. She at this time is alert and oriented only to person, noted to be confused and disorganized during interview and due to the same is poor historian. Patient currently with metabolic derangement which may have patient to be delirious and confused as well as possible hallucinations during delirious state due to the patient's current metabolic abnormalities. It is unclear whether patient recent circumstances that have led to him coming to the hospital were due to delirium or due to primary neurocognitive disorder such as dementia. It is possible the patient may also have acute delirium superimposed on long-standing dementia. Once patient is medically stable it will be easier to differentiate. Recommend continue recommendations as per primary medical team for medical stabilization. Will lift Haro act as this presentation may be related to medical causes in light of no previous psychiatric history. If patient continues to display altered mental status despite being medically cleared, may reconsult. Consult appreciated. Case Leavitt MD Nov 12, 2017 18:17
[2017-11-12] MEDS ORDERED: HALOPERIDOL LACTATE 5 MG/ML AMP IV PUSH ONE (19:45)
[2017-11-12] MEDS ORDERED: MAGNESIUM OXIDE 400 MG TAB PO ONE (20:15)
[2017-11-12] MEDS ORDERED: POTASSIUM CHLORIDE 10 MEQ CONTROLLED RELEASE TAB PO ONE (20:15)
[2017-11-13] VITALS (7 sets, daily range): BP systolic 134–179; BP diastolic 65–94; PULSE 92–112; RESP 17–20; TEMP 97.5–98.4; O2SAT 94–97
[2017-11-13] MEDS: CHLORHEXIDINE GLUCONATE 2 % 1 PACK (2 CLOTHS) TOP SCH (02:39)
[2017-11-13] MEDS: RESP: ALBUTEROL 2.5 MG/IPRATROPIUM 0.5 MG NEB (SCH) INH ×4 (03:39→20:56)
[2017-11-13] MEDS: INSULIN NovoLIN REGULAR SUPPLEMENTAL SCALE SQ SCH ×4 (08:00→21:00)
--- NOTE | 2017-11-13 08:18 | EKG ---
Date Performed: 11/11/2017 Time Performed: 10:48:13 PTAGE: 72 years EKG: Sinus rhythm INCOMPLETE RIGHT BUNDLE BRANCH BLOCK INFERIOR MYOCARDIAL INFARCTION Peaked T waves, cannot exclude i schemia or hyperkalemia, however no major change from the prior tracing ABNORMAL ECG PREVIOUS TRACING : 11/11/2017 04.37 DOCTOR: Bethel Bolaños Interpretating Date/Time 11/13/2017 08:17:58
[2017-11-13 08:21] LABS: AUTOMATED NEUTROPHIL # 9.6 TH/MM3 (1.8-7.7); BASOPHIL # 0.1 TH/MM3 (0-0.2); BASOPHIL % 0.5 % (0.0-2.0); EOSINOPHIL % 0.1 % (0.0-4.0); HEMATOCRIT 34.9 % (39.0-51.0); HEMOGLOBIN 12.5 GM/DL (13.0-17.0); LYMPH % 5.2 % (9.0-44.0); LYMPHOCYTE # 0.6 TH/MM3 (1.0-4.8); MEAN CORPUSCULAR HEMOGLOBIN 34.7 PG (27.0-34.0); MEAN CORPUSCULAR HGB CONC 35.8 % (32.0-36.0); MONO % 9.9 % (0.0-8.0); MONOCYTE # 1.1 TH/MM3 (0-0.9); NEUT % 84.3 % (16.0-70.0); PLATELET COUNT 331 TH/MM3 (150-450); RED BLOOD COUNT 3.59 MIL/MM3 (4.50-5.90); WHITE BLOOD COUNT 11.3 TH/MM3 (4.0-11.0)
[2017-11-13] MEDS: SODIUM CHLORIDE 0.9% FLUSH 10 ML FLUSH IV FLUSH SCH ×2 (08:44→23:05)
[2017-11-13] MEDS: DOCUSATE SODIUM 50 MG/SENNA 8.6 MG TAB PO SCH ×2 (08:44→23:04)
[2017-11-13] MEDS: cloNIDine HCL 0.1 MG TAB PO PRN (08:44)
[2017-11-13] MEDS: MULTIVITAMIN TAB PO SCH (08:44)
[2017-11-13] MEDS: FOLIC ACID 1 MG TAB PO SCH (08:44)
[2017-11-13] MEDS: PANTOPRAZOLE SOD 40 MG DELAYED RELEASE TAB PO SCH (08:44)
[2017-11-13] MEDS: THIAMINE HCL 100 MG TAB PO SCH (08:44)
[2017-11-13] MEDS: ARTIFICIAL TEARS OPTH SOLN 15 ML BTL EACH EYE SCH ×3 (08:51→18:16)
[2017-11-13 08:54] LABS: BICARBONATE 18.7 MEQ/L (21.0-32.0); CALCIUM 9.1 MG/DL (8.5-10.1); CREATININE 0.88 MG/DL (0.60-1.30); MAGNESIUM 2.3 MG/DL (1.5-2.5)
[2017-11-13] MEDS: HEPARIN SODIUM - SQ 10,000 UNITS/ML VIAL SQ SCH ×2 (11:36→23:05)
--- NOTE | 2017-11-13 12:52 | HHI.PR ---
Subjective Remarks Seen earlier today. In the bed he is more awake and alert. Feels tired, eating breakfast, no n/v/d/c. Denies chest pain or sob . He was more confused yesterday per nurse he did near fall, he dd not hit his head, nurse was present at bedside. Patient has no complaints of any pain at this time. Objective Vitals Vital Signs Date Time Temp Pulse Resp B/P (MAP) Pulse Ox O2 Delivery O2 Flow Rate FiO2 11/13/17 11:09 97.6 98 18 178/85 (116) 96 11/13/17 08:54 96 21 11/13/17 07:15 97.9 106 20 179/94 (122) 96 11/13/17 04:04 98.4 92 20 145/65 (91) 97 11/12/17 23:57 98.4 92 20 155/68 (97) 97 11/12/17 20:14 97 21 11/12/17 19:54 98.5 98 18 145/86 (105) 94 11/12/17 18:10 104 168/81 (110) 11/12/17 17:28 98.2 102 20 185/97 (126) 96 11/12/17 13:20 98.7 102 24 171/78 (109) 95 Result Diagram: 11/13/17 0655 11/13/17 0655 Imaging Last Impressions Renal Ultrasound 11/11/17 0000 Signed Impressions: Service Date/Time: Saturday, November 11, 2017 10:13 - CONCLUSION: Mildly distended urinary bladder with trabeculated wall. No evidence of hydronephrosis. Minh Zarate MD Head CT 11/11/17 0000 Signed Impressions: Service Date/Time: Saturday, November 11, 2017 04:42 - CONCLUSION: Normal examination for a patient of this age. Rafael Steel MD Chest X-Ray 11/11/17 0000 Signed Impressions: Service Date/Time: Saturday, November 11, 2017 04:27 - CONCLUSION: No acute disease. Rafael Steel MD Objective Remarks GENERAL: 72-year-old male resting in bed in no acute distress SKIN: Warm and dry. CARDIOVASCULAR: Regular rate and rhythm. S1, S2. No S4. Without murmur RESPIRATORY: No accessory muscle use. Clear to auscultation. Breath sounds equal bilaterally. GASTROINTESTINAL: Abdomen soft, non-tender, slightly distended suprapubically. No pain elicited on examination. Hepatic and splenic margins not palpable. MUSCULOSKELETAL: Extremities without significant peripheral edema. No obvious deformities. NEUROLOGICAL: Awake and alert. No obvious cranial nerve deficits. Motor grossly within normal limits. Five out of 5 muscle strength in the arms and legs. Normal speech. A/P Problem List: (1) Alcohol consumption of one to four drinks per day ICD Code: Z78.9 - Other specified health status (2) Tobacco abuse ICD Code: Z72.0 - Tobacco use (3) History of poliomyelitis ICD Code: Z86.12 - Personal history of poliomyelitis (4) Hyperglycemia ICD Code: R73.9 - Hyperglycemia, unspecified (5) Low hematocrit ICD Code: R71.0 - Precipitous drop in hematocrit (6) Hypokalemia ICD Code: E87.6 - Hypokalemia Status: Acute (7) Hyponatremia ICD Code: E87.1 - Hypo-osmolality and hyponatremia Status: Acute (8) Altered mental status, unspecified ICD Code: R41.82 - Altered mental status, unspecified Status: Acute Assessment and Plan Neuro/Psych: Visual hallucinations, improving Metabolic encephalopathy 2/2 hyponatremia Na of 119 on admission Hyponatremia, improving monitor CT brain 11/11 revealed no acute intracranial findings EEG no seizures Likely will be resolved with slow correction sodium. Na improving. Monitor closely for fast correction Patient is under a Haro act. Consult psychiatry seen by Dr Tree macias BA until medically cleared. Will reassess pt. UDS (-) EtOH level normal on admission Acetaminophen 650 mg every 6 hours. Fever Hydrocodone/acetaminophen 1 tablet every 4 hours when necessary pain 1-5. Morphine sulfate 2 mg IV every 2 hours when necessary pain 6 out of 10 CV: Currently normal saline at 40 cc an hour Currently not requiring vasopressors and/or antihypertensives Check EKG Resp: Tobaccoism Nasal cannula to maintain saturations greater than or equal to 92% Incentive spirometry while awake Tobacco sensation self education booklet will be provided. GI: Follow-up on liver function tests and ammonia level Regular diet Pantoprazole for GI prophylaxis Docusate sodium/senna 1 tablet twice a day for bowel regimen : No indication for Ramirez catheter Check renal/bladder ultrasound Endo: Hyperglycemia Sliding-scale insulin to maintain euglycemia Novulin R Accu-Cheks before meals at bedtime Check TSH nl Renal: Creatinine currently within normal limits Monitor urine output Accurate I's and O's Heme: Decreased hematocrit Follow CBC and coags as indicated. Monitor trends ID: Monitor for infection FEN: Hyponatremia Hypokalemia Ordered 90 mEq potassium chloride over the next 24 hours. Appears euvolemic. Check serum and urine osm, urine sodium, TSH, cortisol cardiac acid and lipid panel. Volume restrict 1800 cc Normal saline at 40 cc an hour. Goal sodium no more than 12 in the next 24 hours\ MSK: History of postpolio syndrome PT evaluate and treat Access - Utilize peripheral IV. Central line if indicated Prophylaxis - GI - pantoprazole - DVT - SCD/heparin Consult PT Code Status Full code Discussed Condition With Patient, nurse DC when imrpved Na improves and clinically improved Problem Qualifiers (1) Altered mental status, unspecified: Qualified Codes: R41.82 - Altered mental status, unspecified Delmi Boston MD Nov 13, 2017 12:52
[2017-11-14] VITALS (7 sets, daily range): BP systolic 137–170; BP diastolic 74–81; PULSE 82–107; RESP 16–18; TEMP 97.4–97.8; O2SAT 96–100
[2017-11-14] MEDS: RESP: ALBUTEROL 2.5 MG/IPRATROPIUM 0.5 MG NEB (SCH) INH ×4 (03:19→19:57)
[2017-11-14] MEDS: CHLORHEXIDINE GLUCONATE 2 % 1 PACK (2 CLOTHS) TOP SCH (04:00)
[2017-11-14 07:46] LABS: AUTOMATED NEUTROPHIL # 9.9 TH/MM3 (1.8-7.7); BASOPHIL % 0.2 % (0.0-2.0); EOSINOPHIL % 0.1 % (0.0-4.0); HEMATOCRIT 36.1 % (39.0-51.0); HEMOGLOBIN 12.2 GM/DL (13.0-17.0); LYMPH % 3.9 % (9.0-44.0); LYMPHOCYTE # 0.4 TH/MM3 (1.0-4.8); MEAN CORPUSCULAR HEMOGLOBIN 33.3 PG (27.0-34.0); MEAN CORPUSCULAR HGB CONC 33.6 % (32.0-36.0); MEAN PLATELET VOLUME 6.8 FL (7.0-11.0); MONO % 9.6 % (0.0-8.0); MONOCYTE # 1.1 TH/MM3 (0-0.9); NEUT % 86.2 % (16.0-70.0); PLATELET COUNT 308 TH/MM3 (150-450); RED BLOOD COUNT 3.65 MIL/MM3 (4.50-5.90); RED CELL DISTRIBUTION WIDTH 13.9 % (11.6-17.2); WHITE BLOOD COUNT 11.4 TH/MM3 (4.0-11.0)
[2017-11-14] MEDS: INSULIN NovoLIN REGULAR SUPPLEMENTAL SCALE SQ SCH ×4 (08:00→21:00)
[2017-11-14 08:17] LABS: BICARBONATE 16.9 MEQ/L (21.0-32.0); CALCIUM 9.5 MG/DL (8.5-10.1); CREATININE 1.55 MG/DL (0.60-1.30)
[2017-11-14] MEDS: ARTIFICIAL TEARS OPTH SOLN 15 ML BTL EACH EYE SCH ×3 (10:02→18:33)
[2017-11-14] MEDS: DOCUSATE SODIUM 50 MG/SENNA 8.6 MG TAB PO SCH ×2 (10:03→23:07)
[2017-11-14] MEDS: SODIUM CHLORIDE 0.9% FLUSH 10 ML FLUSH IV FLUSH SCH ×2 (10:03→23:10)
[2017-11-14] MEDS: HEPARIN SODIUM - SQ 10,000 UNITS/ML VIAL SQ SCH ×2 (10:03→23:04)
[2017-11-14] MEDS: PANTOPRAZOLE SOD 40 MG DELAYED RELEASE TAB PO SCH (10:03)
[2017-11-14] MEDS: THIAMINE HCL 100 MG TAB PO SCH (10:03)
[2017-11-14] MEDS: MULTIVITAMIN TAB PO SCH (10:03)
[2017-11-14] MEDS: FOLIC ACID 1 MG TAB PO SCH (10:03)
--- NOTE | 2017-11-14 16:36 | HHI.PR ---
Subjective Remarks Follow-up for confusion hyponatremia Patient X granddaughters at the bedside. Her name is Kadie. Patient is a a cold 2. He is able to give me location [place]. Contaminate the date or year. He is able to tell me who the president is. Patient also able to answer questions appropriately. He has no complaints. He is very anxious to go home. Patient does follow commands. He is in restraints. He is asking if restraints can be removed. Patient also stated that he has good urine output. Patient ex granddaughters stated that she will take care of her grandfather at home. She stated that she worked at a SNF. Discussed case with patient's nurse in charge nurse. Per Kadie patient is at his baseline. Patient also complained about night nurses. 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 Per ex granddaughter he mainly since dementia. Patient does not want to go to any SNF. Objective Vitals Vital Signs Date Time Temp Pulse Resp B/P (MAP) Pulse Ox O2 Delivery O2 Flow Rate FiO2 11/14/17 11:53 100 21 11/14/17 11:49 97.5 94 16 159/74 (102) 98 11/14/17 07:55 97.5 100 18 159/75 (103) 97 11/14/17 01:02 97.4 107 17 170/79 (109) 96 11/13/17 20:59 96 11/13/17 20:16 97.5 105 17 156/74 (101) 96 I/O 11/13/17 11/13/17 11/13/17 11/14/17 11/14/17 11/14/17 07:00 15:00 23:00 07:00 15:00 23:00 # Voids 3 # Bowel Movements 2 Result Diagram: 11/14/17 0658 11/14/17 0658 Imaging Last Impressions Renal Ultrasound 11/11/17 0000 Signed Impressions: Service Date/Time: Saturday, November 11, 2017 10:13 - CONCLUSION: Mildly distended urinary bladder with trabeculated wall. No evidence of hydronephrosis. Minh Zarate MD Head CT 11/11/17 0000 Signed Impressions: Service Date/Time: Saturday, November 11, 2017 04:42 - CONCLUSION: Normal examination for a patient of this age. Rafael Steel MD Chest X-Ray 11/11/17 0000 Signed Impressions: Service Date/Time: Saturday, November 11, 2017 04:27 - CONCLUSION: No acute disease. Rafael Steel MD Objective Remarks GENERAL: in NAD very thin male restraints was in place but I removed it at the bedside since patient was following commands and not confused anymore. CARDIOVASCULAR: Regular rate and rhythm without murmurs, gallops, or rubs. RESPIRATORY: Breath sounds equal bilaterally. No accessory muscle use. GASTROINTESTINAL: Abdomen soft, non-tender, nondistended. NEURO: AAO X 2 nose name and location. Answer questions properly. Grossly moves his upper extremity. Medications and IVs Current Medications Sodium Chloride 1,000 ml @ 999 mls/hr BOLUS ONCE IV Last administered on 11/11at 05:13; Start 11/11/17 at 05:15; Stop 11/11/17 at 08:44; Status DC Sodium Chloride 1,000 ml @ 40 mls/hr Q24H IV Last administered on 11/11/17at 10 :18; Start 11/11/17 at 09:00; Stop 11/11/17 at 13:32; Status DC Sodium Chloride (NS Flush) 2 ml UNSCH PRN IV FLUSH FLUSH AFTER USING IV ACCESS ; Start 11/11/17 at 08:30 Sodium Chloride (NS Flush) 2 ml BID IV FLUSH Last administered on 11/14/17at 10: 03; Start 11/11/17 at 09:00 Acetaminophen (Tylenol) 650 mg Q6H PRN PO FEVER >101F; Start 11/11/17 at 08:30 Acetaminophen/ Hydrocodone Bitart ([place] 5-325 Mg) 1 tab Q4H PRN PO PAIN SCALE 1 TO 5; Start 11/11/17 at 08:30 Morphine Sulfate (Morphine Inj) 2 mg Q2H PRN IV PUSH PAIN SCALE 6 TO 10; Start 11/11/17 at 08:30 Pantoprazole Sodium (Protonix) 40 mg DAILY PO Last administered on 11/14/17at 10 :03; Start 11/11/17 at 09:00 Artificial Tears (Tears Naturale Opth Soln) 1 drop TID EACH EYE Last administered on 11/14/17at 18:33; Start 11/11/17 at 09:00 Ondansetron HCl (Zofran Inj) 4 mg Q6H PRN IV PUSH NAUSEA OR VOMITING; Start at 08:30 Albuterol/ Ipratropium (Duoneb Neb) 1 ampule Q6HR NEB INH Last administered on 11/14/17at 15:53; Start 11/11/17 at 10:00 Albuterol Sulfate (Albuterol Neb) 2.5 mg Q2HR NEB PRN INH SOB/WHEEZING; Start 11/11/17 at 08:30 Heparin Sodium (Porcine) (Heparin Inj) 5,000 units Q12H SQ Last administered on 11/14/17at 10:03; Start 11/11/17 at 10:00 Miscellaneous Information 1 Q361D XX ; Start 11/11/17 at 08:30 Chlorhexidine Gluconate (Chlorhexidine 2% Cloth) 3 pack Taper DAILY@04 TOP Last administered on 11/14/17at 04:00; Start 11/12/17 at 04:00; Stop 11/08/18 at 03:59 Chlorhexidine Gluconate (Chlorhexidine 2% Cloth) 3 pack UNSCH PRN TOP HYGIENIC CARE; Start 11/11/17 at 08:30 Senna/Docusate Sodium (Hina-Colace) 1 tab BID PO Last administered on at 10:03; Start 11/11/17 at 09:00 Magnesium Hydroxide (Milk Of Magnesia Liq) 30 ml Q12H PRN PO Mild constipation ; Start 11/11/17 at 08:30 Sennosides (Senokot) 17.2 mg Q12H PRN PO Moderate constipation; Start 11/11/17 at 08:30 Bisacodyl (Dulcolax Supp) 10 mg DAILY PRN RECTAL SEVERE CONSITIPATION; Start at 08:30 Lactulose (Lactulose Liq) 30 ml DAILY PRN PO SEVERE CONSITIPATION; Start at 08:30 Potassium Chloride (KCl) 30 meq Q12HR PO Last administered on 11/12/17at 09:10; Start 11/11/17 at 09:00; Stop 11/12/17 at 09:01; Status DC Thiamine HCl (Vitamin B1) 100 mg DAILY PO Last administered on 11/14/17at 10:03 ; Start 11/11/17 at 09:00 Folic Acid (Folate) 1 mg DAILY PO Last administered on 11/14/17at 10:03; Start 11/11/17 at 09:00 Multivitamins (Theragran) 1 tab DAILY PO Last administered on 11/14/17at 10:03; Start 11/11/17 at 09:00 Dextrose (D50w (Vial) Inj) 50 ml UNSCH PRN IV PUSH HYPOGLYCEMIA-SEE COMMENTS; Start 11/11/17 at 08:45 Glucagon (Glucagon Inj) 1 mg UNSCH PRN OTHER HYPOGLYCEMIA-SEE COMMENTS; Start 11/11/17 at 08:45 Insulin Human Regular (NovoLIN R SUPPLEMENTAL SCALE) 1 ACHS SLIDING SCALE SQ ; Start 11/11/17 at 12:00 Nitroglycerin (Nitroglycerin 2% Oint) 2 inch Q6HR PRN TOPICAL SBP>160, DBP>90; Start 11/11/17 at 12:15; Stop 11/12/17 at 09:24; Status DC Hydralazine HCl (Apresoline Inj) 10 mg Q1HR PRN IV PUSH SBP>160, DBP>90; Start 11/11/17 at 12:15; Stop 11/12/17 at 09:24; Status DC Hydralazine HCl (Apresoline Inj) 10 mg ONCE ONCE IV PUSH Last administered on 11/11/17at 13:30; Start 11/11/17 at 12:15; Stop 11/11/17 at 12:18; Status DC Labetalol HCl (Trandate Inj) 10 mg Q1HR PRN IV PUSH SBP>160, DBP>90, HR>65; Start 11/11/17 at 12:15; Stop 11/12/17 at 09:24; Status DC Potassium Chloride 10 meq/ Sodium Chloride 1,005 ml @ 42 mls/hr [id number] IV Last administered on 11/11/17at 17:56; Start 11/11/17 at 15:00; Stop 11/11/17 at 19:19; Status DC Clonidine (Catapres) 0.1 mg Q6H PRN PO SBP>180, DBP>90 Last administered on at 08:44; Start 11/12/17 at 09:30 Clonidine (Catapres) 0.1 mg ONCE ONCE PO Last administered on 11/12/17at 10:05 ; Start 11/12/17 at 09:30; Stop 11/12/17 at 09:31; Status DC Haloperidol Lactate (Haldol Inj) 2 mg ONCE ONCE IV PUSH Last administered on at 20:06; Start 11/12/17 at 19:45; Stop 11/12/17 at 19:49; Status DC Potassium Chloride (KCl) 60 meq ONCE ONCE PO ; Start 11/12/17 at 20:15; Stop at 20:16; Status DC Magnesium Oxide (Mag-Ox) 400 mg ONCE ONCE PO ; Start 11/12/17 at 20:15; Stop at 20:16; Status DC Quetiapine Fumarate (SEROquel) 25 mg HS PO ; Start 11/14/17 at 21:00 A/P Problem List: (1) Alcohol consumption of one to four drinks per day ICD Code: Z78.9 - Other specified health status (2) Tobacco abuse ICD Code: Z72.0 - Tobacco use (3) History of poliomyelitis ICD Code: Z86.12 - Personal history of poliomyelitis (4) Hyperglycemia ICD Code: R73.9 - Hyperglycemia, unspecified (5) Low hematocrit ICD Code: R71.0 - Precipitous drop in hematocrit (6) Hypokalemia ICD Code: E87.6 - Hypokalemia Status: Acute (7) Hyponatremia ICD Code: E87.1 - Hypo-osmolality and hyponatremia Status: Acute (8) Altered mental status, unspecified ICD Code: R41.82 - Altered mental status, unspecified Status: Acute Assessment and Plan 72-year-old male presented with confusion secondary to hypernatremia Metabolic encephalopathy 2/2 hyponatremia Na of 119 on admission Hyponatremia, improving monitor improving 130 CT brain 11/11 revealed no acute intracranial findings EEG no seizures Likely will be resolved with slow correction sodium. Na improving. Monitor closely for fast correction Patient is under a Haro act. Consult psychiatry seen by Dr Tree macias BA until medically cleared. Will reassess pt. UDS (-) EtOH level normal on admission Tobaccoism Nasal cannula to maintain saturations greater than or equal to 92% Incentive spirometry while awake Tobacco sensation self education booklet will be provided. Hyperglycemia Sliding-scale insulin to maintain euglycemia Novulin R Accu-Cheks before meals at bedtime Check TSH nl ARF most likely due to dehydration + UOP Continue to monitor strict ins and outs. Continue to trend creatinine. Avoid nephrotoxins. Hypokalemia Replenish as needed. History of postpolio syndrome Baseline patient unable to ambulate. He does not want to go to SNF. He has been living at home with this. Patient's granddaughter Kadie will take care of patient. Prophylaxis - GI - pantoprazole - DVT - SCD/heparin Problem Qualifiers (1) Altered mental status, unspecified: Qualified Codes: R41.82 - Altered mental status, unspecified Yue Tobar MD Nov 14, 2017 16:36
[2017-11-14] MEDS: QUEtiapine FUMARATE 25 MG TAB PO SCH (23:11)
[2017-11-15] VITALS (7 sets, daily range): BP systolic 135–152; BP diastolic 69–72; PULSE 92–101; RESP 18–22; TEMP 97.5–98.6; O2SAT 94–98
[2017-11-15] MEDS: RESP: ALBUTEROL 2.5 MG/IPRATROPIUM 0.5 MG NEB (SCH) INH ×2 (04:00→09:27)
[2017-11-15 08:03] LABS: HEMOGLOBIN 11.3 GM/DL (13.0-17.0); MEAN CELL VOLUME 97.8 FL (80.0-100.0); MEAN CORPUSCULAR HEMOGLOBIN 34.5 PG (27.0-34.0); MEAN CORPUSCULAR HGB CONC 35.2 % (32.0-36.0); MEAN PLATELET VOLUME 7.3 FL (7.0-11.0); PLATELET COUNT 317 TH/MM3 (150-450); RED BLOOD COUNT 3.27 MIL/MM3 (4.50-5.90); RED CELL DISTRIBUTION WIDTH 13.8 % (11.6-17.2); WHITE BLOOD COUNT 5.6 TH/MM3 (4.0-11.0)
[2017-11-15 08:40] LABS: BICARBONATE 19.6 MEQ/L (21.0-32.0); CALCIUM 8.6 MG/DL (8.5-10.1); CREATININE 1.5 MG/DL (0.60-1.30)
[2017-11-15] MEDS: DOCUSATE SODIUM 50 MG/SENNA 8.6 MG TAB PO SCH ×3 (09:00→21:00)
[2017-11-15] MEDS: INSULIN NovoLIN REGULAR SUPPLEMENTAL SCALE SQ SCH ×4 (09:16→20:23)
[2017-11-15] MEDS: FOLIC ACID 1 MG TAB PO SCH ×2 (10:26→11:13)
[2017-11-15] MEDS: THIAMINE HCL 100 MG TAB PO SCH ×2 (10:27→11:12)
[2017-11-15] MEDS: PANTOPRAZOLE SOD 40 MG DELAYED RELEASE TAB PO SCH ×2 (10:27→11:13)
[2017-11-15] MEDS: SODIUM CHLORIDE 0.9% FLUSH 10 ML FLUSH IV FLUSH SCH ×2 (10:27→21:00)
[2017-11-15] MEDS: MULTIVITAMIN TAB PO SCH ×2 (10:27→11:13)
[2017-11-15] MEDS: CHLORHEXIDINE GLUCONATE 2 % 1 PACK (2 CLOTHS) TOP SCH (10:28)
[2017-11-15] MEDS: ARTIFICIAL TEARS OPTH SOLN 15 ML BTL EACH EYE SCH ×3 (10:28→18:00)
[2017-11-15] MEDS: SODIUM CHLOR 0.9% 1000 ML INJ 1,000 ML IV SCH ×2 (10:28→23:48)
[2017-11-15] MEDS: HEPARIN SODIUM - SQ 10,000 UNITS/ML VIAL SQ SCH ×2 (10:28→21:59)
--- NOTE | 2017-11-15 15:41 | HHI.PR ---
Subjective Remarks Follow-up for confusion and acute renal failure Patient stated that he feels tired. He is able to give me his name, location, and tell me its 18 when I asked him the year. He is also able to tell me the name of the president. Per patient's nurse he felt well last night and was not agitated. Per nurse patient does not eat a lot of food he picks at his food a lot. No others issues. Discussed case with patient's nurse. Objective Vitals Vital Signs Date Time Temp Pulse Resp B/P (MAP) Pulse Ox O2 Delivery O2 Flow Rate FiO2 11/15/17 11:52 98.0 93 20 152/70 (97) 98 11/15/17 09:28 94 21 11/15/17 07:40 98.0 93 20 146/69 (94) 97 11/15/17 03:53 97.8 92 18 135/69 (91) 96 11/15/17 00:06 97.5 101 19 140/70 (93) 97 11/14/17 20:21 97.5 82 16 137/74 (95) 96 11/14/17 19:59 97 11/14/17 16:40 97.8 104 18 170/81 (110) 99 I/O 11/14/17 11/14/17 11/14/17 11/15/17 11/15/17 11/15/17 07:00 15:00 23:00 07:00 15:00 23:00 Intake Total 950 ml Balance 950 ml Intake Oral 950 ml # Voids 4 4 # Bowel Movements 3 Result Diagram: 11/15/17 0723 11/15/17 0723 Objective Remarks GENERAL: Very thin male in no acute distress. CARDIOVASCULAR: Regular rate and rhythm without murmurs, gallops, or rubs. RESPIRATORY: Breath sounds equal bilaterally. No accessory muscle use. GASTROINTESTINAL: Abdomen soft, non-tender, nondistended. NEURO: AAO X 2 nose name and location. Answer questions properly. Grossly moves his upper extremity. Medications and IVs Current Medications Sodium Chloride 1,000 ml @ 999 mls/hr BOLUS ONCE IV Last administered on 11/11at 05:13; Start 11/11/17 at 05:15; Stop 11/11/17 at 08:44; Status DC Sodium Chloride 1,000 ml @ 40 mls/hr Q24H IV Last administered on 11/11/17at 10 :18; Start 11/11/17 at 09:00; Stop 11/11/17 at 13:32; Status DC Sodium Chloride (NS Flush) 2 ml UNSCH PRN IV FLUSH FLUSH AFTER USING IV ACCESS ; Start 11/11/17 at 08:30 Sodium Chloride (NS Flush) 2 ml BID IV FLUSH Last administered on 11/15/17at 10: 27; Start 11/11/17 at 09:00 Acetaminophen (Tylenol) 650 mg Q6H PRN PO FEVER >101F; Start 11/11/17 at 08:30 Acetaminophen/ Hydrocodone Bitart ([place] 5-325 Mg) 1 tab Q4H PRN PO PAIN SCALE 1 TO 5; Start 11/11/17 at 08:30 Morphine Sulfate (Morphine Inj) 2 mg Q2H PRN IV PUSH PAIN SCALE 6 TO 10; Start 11/11/17 at 08:30 Pantoprazole Sodium (Protonix) 40 mg DAILY PO Last administered on 11/15/17at 11 :13; Start 11/11/17 at 09:00 Artificial Tears (Tears Naturale Opth Soln) 1 drop TID EACH EYE Last administered on 11/15/17at 13:00; Start 11/11/17 at 09:00 Ondansetron HCl (Zofran Inj) 4 mg Q6H PRN IV PUSH NAUSEA OR VOMITING; Start at 08:30 Albuterol/ Ipratropium (Duoneb Neb) 1 ampule Q6HR NEB INH Last administered on 11/15/17at 09:27; Start 11/11/17 at 10:00; Stop 11/15/17 at 09:59; Status DC Albuterol Sulfate (Albuterol Neb) 2.5 mg Q2HR NEB PRN INH SOB/WHEEZING; Start 11/11/17 at 08:30 Heparin Sodium (Porcine) (Heparin Inj) 5,000 units Q12H SQ Last administered on 11/15/17at 10:28; Start 11/11/17 at 10:00 Miscellaneous Information 1 Q361D XX ; Start 11/11/17 at 08:30 Chlorhexidine Gluconate (Chlorhexidine 2% Cloth) 3 pack Taper DAILY@04 TOP Last administered on 11/15/17at 10:28; Start 11/12/17 at 04:00; Stop 11/08/18 at 03:59 Chlorhexidine Gluconate (Chlorhexidine 2% Cloth) 3 pack UNSCH PRN TOP HYGIENIC CARE; Start 11/11/17 at 08:30 Senna/Docusate Sodium (Hina-Colace) 1 tab BID PO Last administered on at 09:00; Start 11/11/17 at 09:00 Magnesium Hydroxide (Milk Of Magnesia Liq) 30 ml Q12H PRN PO Mild constipation ; Start 11/11/17 at 08:30 Sennosides (Senokot) 17.2 mg Q12H PRN PO Moderate constipation; Start 11/11/17 at 08:30 Bisacodyl (Dulcolax Supp) 10 mg DAILY PRN RECTAL SEVERE CONSITIPATION; Start at 08:30 Lactulose (Lactulose Liq) 30 ml DAILY PRN PO SEVERE CONSITIPATION; Start at 08:30 Potassium Chloride (KCl) 30 meq Q12HR PO Last administered on 11/12/17at 09:10; Start 11/11/17 at 09:00; Stop 11/12/17 at 09:01; Status DC Thiamine HCl (Vitamin B1) 100 mg DAILY PO Last administered on 11/15/17at 11:12 ; Start 11/11/17 at 09:00 Folic Acid (Folate) 1 mg DAILY PO Last administered on 11/15/17at 11:13; Start 11/11/17 at 09:00 Multivitamins (Theragran) 1 tab DAILY PO Last administered on 11/15/17at 11:13; Start 11/11/17 at 09:00 Dextrose (D50w (Vial) Inj) 50 ml UNSCH PRN IV PUSH HYPOGLYCEMIA-SEE COMMENTS; Start 11/11/17 at 08:45 Glucagon (Glucagon Inj) 1 mg UNSCH PRN OTHER HYPOGLYCEMIA-SEE COMMENTS; Start 11/11/17 at 08:45 Insulin Human Regular (NovoLIN R SUPPLEMENTAL SCALE) 1 ACHS SLIDING SCALE SQ ; Start 11/11/17 at 12:00 Nitroglycerin (Nitroglycerin 2% Oint) 2 inch Q6HR PRN TOPICAL SBP>160, DBP>90; Start 11/11/17 at 12:15; Stop 11/12/17 at 09:24; Status DC Hydralazine HCl (Apresoline Inj) 10 mg Q1HR PRN IV PUSH SBP>160, DBP>90; Start 11/11/17 at 12:15; Stop 11/12/17 at 09:24; Status DC Hydralazine HCl (Apresoline Inj) 10 mg ONCE ONCE IV PUSH Last administered on 11/11/17at 13:30; Start 11/11/17 at 12:15; Stop 11/11/17 at 12:18; Status DC Labetalol HCl (Trandate Inj) 10 mg Q1HR PRN IV PUSH SBP>160, DBP>90, HR>65; Start 11/11/17 at 12:15; Stop 11/12/17 at 09:24; Status DC Potassium Chloride 10 meq/ Sodium Chloride 1,005 ml @ 42 mls/hr [id number] IV Last administered on 11/11/17at 17:56; Start 11/11/17 at 15:00; Stop 11/11/17 at 19:19; Status DC Clonidine (Catapres) 0.1 mg Q6H PRN PO SBP>180, DBP>90 Last administered on at 08:44; Start 11/12/17 at 09:30 Clonidine (Catapres) 0.1 mg ONCE ONCE PO Last administered on 11/12/17at 10:05 ; Start 11/12/17 at 09:30; Stop 11/12/17 at 09:31; Status DC Haloperidol Lactate (Haldol Inj) 2 mg ONCE ONCE IV PUSH Last administered on at 20:06; Start 11/12/17 at 19:45; Stop 11/12/17 at 19:49; Status DC Potassium Chloride (KCl) 60 meq ONCE ONCE PO ; Start 11/12/17 at 20:15; Stop at 20:16; Status DC Magnesium Oxide (Mag-Ox) 400 mg ONCE ONCE PO ; Start 11/12/17 at 20:15; Stop at 20:16; Status DC Quetiapine Fumarate (SEROquel) 25 mg HS PO Last administered on 11/14/17at 23:11 ; Start 11/14/17 at 21:00 Sodium Chloride 1,000 ml @ 70 mls/hr [id number] IV Last administered on at 10:28; Start 11/15/17 at 09:30 A/P Problem List: (1) Alcohol consumption of one to four drinks per day ICD Code: Z78.9 - Other specified health status (2) Tobacco abuse ICD Code: Z72.0 - Tobacco use (3) History of poliomyelitis ICD Code: Z86.12 - Personal history of poliomyelitis (4) Hyperglycemia ICD Code: R73.9 - Hyperglycemia, unspecified (5) Low hematocrit ICD Code: R71.0 - Precipitous drop in hematocrit (6) Hypokalemia ICD Code: E87.6 - Hypokalemia Status: Acute (7) Hyponatremia ICD Code: E87.1 - Hypo-osmolality and hyponatremia Status: Acute (8) Altered mental status, unspecified ICD Code: R41.82 - Altered mental status, unspecified Status: Acute Assessment and Plan 72-year-old male presented with confusion secondary to hypernatremia Metabolic encephalopathy 2/2 hyponatremia Na of 119 on admission Hyponatremia, improving monitor improving today 131. CT brain 11/11 revealed no acute intracranial findings EEG no seizures At the moment patient is dry. Will need to remove fluid restriction and give IV fluids encourage oral intake. Continue to monitor sodium levels and clinically. Tobaccoism Nasal cannula to maintain saturations greater than or equal to 92% Incentive spirometry while awake Tobacco sensation self education booklet will be provided. Hyperglycemia Sliding-scale insulin to maintain euglycemia Novulin R Accu-Cheks before meals at bedtime Check TSH nl ARF most likely due to dehydration 1 needs to give IV fluids. Continue to monitor strict ins and outs. Continue to trend creatinine. Avoid nephrotoxins. Hypokalemia Replenish as needed. History of postpolio syndrome Baseline patient unable to ambulate. He does not want to go to SNF. He has been living at home with this. Patient's granddaughter Kadie will take care of patient. Prophylaxis - GI - pantoprazole - DVT - SCD/heparin discussed case with patient's nurse Discharge Planning If continues to improve tomorrow possible discharge tomorrow. Problem Qualifiers (1) Altered mental status, unspecified: Qualified Codes: R41.82 - Altered mental status, unspecified Yue Tobar MD Nov 15, 2017 15:41
[2017-11-15] MEDS: TAMSULOSIN HCL 0.4 MG CAP PO SCH (20:30)
[2017-11-15] MEDS: QUEtiapine FUMARATE 25 MG TAB PO SCH (21:00)
[2017-11-16 00:49] VITALS: BP 143/77; PULSE 97; RESP 18; TEMP 96.6; O2SAT 97
[2017-11-16] MEDS: CHLORHEXIDINE GLUCONATE 2 % 1 PACK (2 CLOTHS) TOP SCH (02:55)
[2017-11-16 04:20] VITALS: BP 188/84; PULSE 100; RESP 18; TEMP 97.6; O2SAT 98
[2017-11-16] MEDS: cloNIDine HCL 0.1 MG TAB PO PRN (05:10)
[2017-11-16 05:32] LABS: BICARBONATE 24.2 MEQ/L (21.0-32.0); CALCIUM 8.7 MG/DL (8.5-10.1); CREATININE 1.23 MG/DL (0.60-1.30)
[2017-11-16 08:00] VITALS: BP 182/86; PULSE 94; RESP 20; TEMP 97.5; O2SAT 97
[2017-11-16] MEDS: INSULIN NovoLIN REGULAR SUPPLEMENTAL SCALE SQ SCH ×3 (08:00→17:00)
[2017-11-16] MEDS: ARTIFICIAL TEARS OPTH SOLN 15 ML BTL EACH EYE SCH ×3 (08:46→18:00)
[2017-11-16] MEDS: FOLIC ACID 1 MG TAB PO SCH (08:47)
[2017-11-16] MEDS: DOCUSATE SODIUM 50 MG/SENNA 8.6 MG TAB PO SCH (08:47)
[2017-11-16] MEDS: MULTIVITAMIN TAB PO SCH (08:47)
[2017-11-16] MEDS: THIAMINE HCL 100 MG TAB PO SCH (08:47)
[2017-11-16] MEDS: PANTOPRAZOLE SOD 40 MG DELAYED RELEASE TAB PO SCH (08:47)
[2017-11-16] MEDS: TAMSULOSIN HCL 0.4 MG CAP PO SCH (08:47)
[2017-11-16] MEDS: HEPARIN SODIUM - SQ 10,000 UNITS/ML VIAL SQ SCH (08:48)
[2017-11-16] MEDS: SODIUM CHLORIDE 0.9% FLUSH 10 ML FLUSH IV FLUSH SCH (09:00)
[2017-11-16 10:39] VITALS: O2SAT 97
--- NOTE | 2017-11-16 10:39 | HHI.DS ---
Discharge Summary Admission Date Nov 11, 2017 at 08:21 Discharge Date: Nov 16, 2017 Admitting Diagnosis hyponatremia (1) Alcohol consumption of one to four drinks per day ICD Code: Z78.9 - Other specified health status Diagnosis: Principal (2) Tobacco abuse ICD Code: Z72.0 - Tobacco use Diagnosis: Principal (3) History of poliomyelitis ICD Code: Z86.12 - Personal history of poliomyelitis Diagnosis: Secondary (4) Hyperglycemia ICD Code: R73.9 - Hyperglycemia, unspecified Diagnosis: Secondary (5) Low hematocrit ICD Code: R71.0 - Precipitous drop in hematocrit Diagnosis: Secondary (6) Hypokalemia ICD Code: E87.6 - Hypokalemia Diagnosis: Principal Status: Acute (7) Hyponatremia ICD Code: E87.1 - Hypo-osmolality and hyponatremia Diagnosis: Principal Status: Acute (8) Altered mental status, unspecified ICD Code: R41.82 - Altered mental status, unspecified Diagnosis: Secondary Status: Acute Procedures Patient in nad. He is in bed, says he feels better. .Pleasantly confused, however says she is not going to snf. No fever or chills. No abd cramps, /v/d/ c. No muscle weakness. Brief History - From Admission This is a 72-year-old male. Date of admission 11/11/2007. Past medical history includes postpolio syndrome. Patient extubated is doing soaks requires pack per day tobacco. Patient presents to [facility] ED as a Haro act. This patient stated to me that he saw " people" and contacted police. Police came and found him sitting in feces and urine with little food in the house. They felt the patient was hallucinating. They brought him in under Haro act. Patient states that he was doing well and denies any significant medical history except for polio as a child. 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 He denies any recent illnesses, fever, or chills. Reports that he has had difficulty with his bowels and bladder. Specifically complaining of suprapubic distention. Denies any abdominal pain. Denies any other symptoms at this time. CT brain revealed no acute intracranial findings. Sodium 119 potassium 3.2. Glucose slightly elevated. We are asked to admit the patient because the contacted hospitalist did not feel comfortable admitting a stable patient with a sodium of 119. CBC/BMP: 11/15/17 0723 11/16/17 0424 Significant Findings Laboratory Tests Test 11/14/17 06:58 11/15/17 07:23 11/16/17 04:24 White Blood Count 11.4 TH/MM3 (4.0-11.0) Red Blood Count 3.65 MIL/MM3 (4.50-5.90) 3.27 MIL/MM3 (4.50-5.90) Hemoglobin 12.2 GM/DL (13.0-17.0) 11.3 GM/DL (13.0-17.0) Hematocrit 36.1 % (39.0-51.0) 32.0 % (39.0-51.0) Mean Platelet Volume 6.8 FL (7.0-11.0) Neutrophils (%) (Auto) 86.2 % (16.0-70.0) Lymphocytes (%) (Auto) 3.9 % (9.0-44.0) Monocytes (%) (Auto) 9.6 % (0.0-8.0) Neutrophils # (Auto) 9.9 TH/MM3 (1.8-7.7) Lymphocytes # (Auto) 0.4 TH/MM3 (1.0-4.8) Monocytes # (Auto) 1.1 TH/MM3 (0-0.9) Blood Urea Nitrogen 26 MG/DL (7-18) 31 MG/DL (7-18) 26 MG/DL (7-18) Creatinine 1.55 MG/DL (0.60-1.30) 1.50 MG/DL (0.60-1.30) Random Glucose 56 MG/DL (74-106) Sodium Level 130 MEQ/L (136-145) 131 MEQ/L (136-145) 134 MEQ/L (136-145) Chloride Level 97 MEQ/L (98-107) Carbon Dioxide Level 16.9 MEQ/L (21.0-32.0) 19.6 MEQ/L (21.0-32.0) Anion Gap 16 MEQ/L (5-15) Estimat Glomerular Filtration Rate 44 ML/MIN (>89) 46 ML/MIN (>89) 58 ML/MIN (>89) Mean Corpuscular Hemoglobin 34.5 PG (27.0-34.0) Imaging Last Impressions Renal Ultrasound 11/11/17 0000 Signed Impressions: Service Date/Time: Saturday, November 11, 2017 10:13 - CONCLUSION: Mildly distended urinary bladder with trabeculated wall. No evidence of hydronephrosis. Minh Zarate MD Head CT 11/11/17 0000 Signed Impressions: Service Date/Time: Saturday, November 11, 2017 04:42 - CONCLUSION: Normal examination for a patient of this age. Rafael Steel MD Chest X-Ray 11/11/17 0000 Signed Impressions: Service Date/Time: Saturday, November 11, 2017 04:27 - CONCLUSION: No acute disease. Rafael Steel MD PE at Discharge GENERAL: Very thin male in no acute distress. CARDIOVASCULAR: Regular rate and rhythm without murmurs, gallops, or rubs. RESPIRATORY: Breath sounds equal bilaterally. No accessory muscle use. GASTROINTESTINAL: Abdomen soft, non-tender, nondistended. NEURO: AAO X 2 nose name and location. Answer questions properly. Grossly moves his upper extremity. Hospital Course 72-year-old male presented with confusion secondary to hypernatremia Metabolic encephalopathy 2/2 hyponatremia Na of 119 on admission, received IVF Na improved on DC 134. Hyponatremia, improving monitor improving today 134. CT brain 11/11 revealed no acute intracranial findings EEG no seizures At the moment patient is dry. Will need to remove fluid restriction and give IV fluids encourage oral intake. Continue to monitor sodium levels and clinically. Tobaccoism Nasal cannula to maintain saturations greater than or equal to 92% Incentive spirometry while awake Tobacco sensation self education booklet will be provided. Hyperglycemia Sliding-scale insulin to maintain euglycemia Novulin R Accu-Cheks before meals at bedtime Check TSH nl ARF most likely due to dehydration 1 needs to give IV fluids. Continue to monitor strict ins and outs. Continue to trend creatinine. Avoid nephrotoxins. Hypokalemia Replenish as needed. History of postpolio syndrome Baseline patient unable to ambulate. He does not want to go to SNF. He has been living at home with this. Patient's granddaughter Kadie will take care of patient. Prophylaxis - GI - pantoprazole - DVT - SCD/heparin Improved, DC to home with home health refusing snf. In stable condition at DC. To follow up as OP with PCP and consultants. Pt Condition on Discharge: Stable Discharge Disposition: Disch w/ Home Health Serv Discharge Time: > 30 minutes Discharge Instructions DIET: Follow Instructions for: As Tolerated, No Restrictions Activities you can perform: Regular-No Restrictions, Weight Bearing as Ramana Follow up Referrals: PCP Follow-up - 2-3 Days New Medications: Folic Acid (Folic Acid) 1 Mg Tablet 1 MG PO DAILY for Nutritional Supplement, #30 MG Multivitamin with Folic Acid (Thera Tablet) 400 Mcg Tablet 1 TAB PO DAILY for Nutritional Supplement, #30 MG Quetiapine (Seroquel) 25 Mg Tab 25 MG PO HS for anxiety , #30 TAB Tamsulosin (Flomax) 0.4 Mg Cap 0.4 MG PO DAILY for bph, #30 CAP Thiamine HCl (Gnp Vitamin B-1) 100 Mg Tab 100 MG PO DAILY for Nutritional Supplement, #30 TAB Delmi Boston MD Nov 16, 2017 10:39
[2017-11-16] MEDS ORDERED: THIA100 PO (10:42)
[2017-11-16] MEDS ORDERED: THERTAB15 PO (10:42)
[2017-11-16] MEDS ORDERED: TAMS5CAP PO (10:42)
[2017-11-16] MEDS ORDERED: SERO25TA PO (10:42)
[2017-11-16] MEDS ORDERED: FOLI1TAB6 PO (10:42)
--- NOTE | 2017-11-16 11:35 | HHI.FF ---
Face to Face Verification Diagnosis: (1) History of post-polio syndrome (2) Impaired mobility and activities of daily living (3) Physical deconditioning (4) Altered mental status, unspecified (5) Hyponatremia Physical Therapy Order: Evaluate and Treat, Improve ambulation, Strength and gait training I have seen patient John Hernandez on 11/16/17. My clinical findings support the need for the requested home health care services because: Patient has SOB Deconditioned w/ increased weakness Limited ability to care for self High risk of falls I certify that my clinical findings support that this patient is homebound because: Post-op weakness Unsteady gait/balance Unsafe to leave home unassisted Unable to use public transportation Sravanthi Monge Nov 16, 2017 11:35
[2017-11-16 11:49] VITALS: BP 160/75; PULSE 101; RESP 16; TEMP 98.4; O2SAT 95
== END 2017-11-16 18:34 | disposition home health service (06) | DRG 640 ==
LOC: NEPD 03:36 → NEDA 07:36 → OBSVTOIN 08:21 → NEDA 13:08 → NEPFCDU 20:47
PROVIDERS: ADMIT Internal Medicine Critical Care Medicine; ATTEND Hospitalist
DX: E87.1 Hypo-osmolality and hyponatremia (principal); G93.41 Metabolic encephalopathy; E86.0 Dehydration; N17.9 Acute kidney failure, unspecified; E87.6 Hypokalemia; G14 Postpolio syndrome; R73.9 Hyperglycemia, unspecified; D64.9 Anemia, unspecified; F17.210 Nicotine dependence, cigarettes, uncomplicated
CPT/HCPCS: 70450; 71045; 76775; 80048; 80053; 80061; 80076; 80307; 81001; 82140; 82150; 82533; 82550; 82948; 83036; 83605; 83690; 83735; 83930; 83935; 84100; 84295; 84300; 84443; 84550; 85025; 85027; 85384; 85610; 85730; 93005; 94150; 94640; 94664; 95819; 96360; 96361; J0360; J1630; J1644; J3480; J7030